=== PATIENT | female | born 1955 | race Caucasian/White ===

== ENCOUNTER 2017-08-23 06:27 | Emergency (ER) | payer OTHER ==
[~2017-08-23] VITALS: Ht 160 cm; Wt 59.0 kg
[~2017-08-23 06:27] MED LIST: AMBIEN10 MG PO; BENTYL10 MG PO; CARAFATE1 GM/10 ML PO; CLARITIN D1 TAB.SR .; CLONAZEPAM1 MG PO; CYMBALTA20 MG PO; FLAGYL250 MG PO; MELOXICAM7.5 MG PO; NORCO 10-325 T1 EACH PO; PANTOPRAZOLE SO40 MG PO; TRINTELLIX PO; TYLENOL WITH C1 EACH PO; ZOFRAN ODT4 MG PO; ZOLOFT100 MG PO
[2017-08-23] MEDS ORDERED: DEXTROSE 50% SYRINGE 50 ML IV ONE (06:40)
[2017-08-23] MEDS ORDERED: DIATRIZOATE MEGL/DIATRIZOA SOD 30 ML BTL PO ONE (07:25)
[2017-08-23] MEDS ORDERED: KETOROLAC TROMETHAMINE 30 MG/ML VIAL IV STA (07:26)
[2017-08-23 08:08] LABS: BASOPHILS # (AUTO) 0.1 (0.0-0.1); EOSINOPHILS # (AUTO) 0.4 (0.0-0.4); EOSINOPHILS % 5.8 % (0.0-6.0); HEMATOCRIT 41.3 % (34.2-44.1); HEMOGLOBIN 13.4 g/dL (12.0-16.0); LYMPHOCYTES % 28.4 % (18.0-39.1); MEAN CORPUSCULAR HEMOGLOBIN 29.6 pg (28-32); MEAN CORPUSCULAR HGB CONC 32.4 g/dL (31-35); MEAN CORPUSCULAR VOLUME 91.4 fL (81-99); MONOCYTES # (AUTO) 0.5 (0.2-0.8); MONOCYTES % 7.3 % (4.4-11.3); NEUTROPHILS # (AUTO) 3.9 (2.1-6.9); NEUTROPHILS % 57.1 % (38.7-80.0); PLATELET COUNT 379 x10e3/uL (140-360); RED BLOOD COUNT 4.52 x10e6/uL (3.6-5.1); RED CELL DISTRIBUTION WIDTH 12.9 % (11.7-14.4)
[2017-08-23 08:32] LABS: ALANINE AMINOTRANSFERASE 21 IU/L (0-55); ALKALINE PHOSPHATASE 94 IU/L (40-150); ANION GAP 15.3 mmol/L (8-16); BLOOD UREA NITROGEN 9 mg/dL (7-26); BUN/CREATININE RATIO 11 (6-25); CALCIUM 9.6 mg/dL (8.4-10.2); CARBON DIOXIDE 29 mmol/L (22-29); CHLORIDE 100 mmol/L (98-107); CREATINE KINASE 87 IU/L (29-168); CREATININE, SERUM 0.83 mg/dL (0.57-1.11); EST GLOMERULAR FILTRATION RATE > 60 ML/MIN (60-); GLUCOSE 98 mg/dL (74-118); LIPASE 19 U/L (8-78); POTASSIUM 3.3 mmol/L (3.5-5.1); SODIUM 141 mmol/L (136-145)
[2017-08-23] MEDS ORDERED: ONDANSETRON HCL INJ 2 MG/ML VIAL IV STA (08:37)
[2017-08-23] MEDS ORDERED: HYDROMORPHONE 1MG/1ML INJ IV STA (08:37)
[2017-08-23 09:25] LABS: BILIRUBIN,URINE NEGATIVE (NEGATIVE); KETONES,URINE NEGATIVE (NEGATIVE); LEUKOCYTE ESTERASE ,URINE NEGATIVE (NEGATIVE); NITRITE,URINE NEGATIVE (NEGATIVE); PROTEIN,URINE DIPSTICK NEGATIVE (NEGATIVE); URINE UROBILINOGEN 0.2 mg/dL (0.2 - 1)
--- NOTE | 2017-08-23 09:45 | Diagnostic Imaging Report ---
PROCEDURE: CT ABDOMEN AND PELVIS WITH CONTRAST TECHNIQUE: The abdomen and pelvis were scanned utilizing a multidetector helical scanner from the diaphragm to the lesser trochanter after the IV administration of 100 cc of Isovue 370 and the oral administration of Gastroview. Coronal and sagittal multiplanar reformations were obtained. COMPARISON: CT abdomen and pelvis 02/01/2017. INDICATIONS: ABDOMEN PAIN FINDINGS: LOWER THORAX: Normal. HEPATOBILIARY: No focal hepatic lesions. No biliary ductal dilatation. Stable hypodensities in the right lobe of the liver, likely represent simple cysts. SPLEEN: No splenomegaly. PANCREAS: No focal masses or ductal dilatation. ADRENALS: No adrenal nodules. KIDNEYS/URETERS: No hydronephrosis, stones, or solid mass lesions. PELVIC ORGANS/BLADDER: Hysterectomy. Normal ovaries. Normal urinary bladder. PERITONEUM / RETROPERITONEUM: No free air or fluid. LYMPH NODES: No lymphadenopathy. VESSELS: Unremarkable. GI TRACT: No distention or wall thickening. Multiple diverticuli are present in the descending and sigmoid colon, without adjacent soft tissue inflammatory changes. Normal appendix. Moderate amount of retained feces in the intraluminal evaluation of the colon. BONES AND SOFT TISSUES: Unremarkable. IMPRESSION: No acute abnormality of the abdomen and pelvis. Diverticulosis without evidence of diverticulitis. Dictated by: Jose Benjamin M.D. on 08/23/2017 at 9:45 Electronically approved by: Jose Benjamin M.D. on 08/23/2017 at 9:45
[2017-08-23 09:49] LABS: CLARITY,URINE CLEAR (CLEAR); COLOR,URINE YELLOW (YELLOW)
[2017-08-23 09:56] LABS: EPITHELIAL CELLS,URINE RARE /LPF
[2017-08-23] MEDS ORDERED: SODIUM CHLORIDE 0.9% 50ML 50 ML ONE (14:49)
[2017-08-23] MEDS ORDERED: IOPAMIDOL 370 MG/ML 200 ML INFUS..BTL INJ ONE (14:49)
== END 2017-08-23 10:20 | disposition home or self-care (01) ==
LOC: ER 06:27
DX: M54.5 Low back pain (principal)
CPT/HCPCS: 36415; 74177; 80053; 81001; 82550; 82553; 83690; 84484; 85025; 87086; 93005; 99284; J1170; J1885; J2405; J7799; Q9967

== ENCOUNTER 2017-10-13 10:13 | Emergency (ER) | payer OTHER ==
[~2017-10-13] VITALS: Ht 160 cm; Wt 73.9 kg
--- OUTSIDE RECORDS SUMMARY | 2017-10-13 10:16 | XMS REPORT ---
Author Author [facility] Address Unknown Phone Unavailable Care Team Providers Care Executive Director Of Marketing Name Role Phone GABRIELE MCNAIR Unavailable Unavailable Problems This patient has no known problems. Allergies, Adverse Reactions, Alerts This patient has no known allergies or adverse reactions. Medications This patient has no known medications. Results Test Description Test Time Test Comments Text Results Atomic Results Result Comments CT ABDOMEN/PELVIS W [place] [address] Patient Name: BRUCE GASCA MR #: [id number] : 1955 Age/Sex: 62/F Req #: [id number] [facility] Physician: Ordered by: GABRIELE MCNAIR MD Report #: [id number] Location: ER Room/Bed: Procedure: [id number] CT/CT ABDOMEN/PELVIS W Exam Date: 08/23/17 Exam Time : 0850 REPORT STATUS: Signed PROCEDURE: CT ABDOMEN AND PELVIS WITH CONTRAST TECHNIQUE: The abdomen and pelvis were scanned utilizing a multidetector helical scanner from the diaphragm to the lesser trochanter after the IV administration of 100 cc of Isovue 370 and the oral administration of Gastroview. Coronal and sagittal multiplanar reformations were obtained. COMPARISON: CT abdomen and pelvis 02/01/2017. INDICATIONS: ABDOMEN PAIN FINDINGS: LOWER THORAX: Normal. HEPATOBILIARY: No focal hepatic lesions. No biliary ductal dilatation. Stable hypodensities in the right lobe of the liver, likely represent simple cysts. SPLEEN: No splenomegaly. PANCREAS: No focal masses or ductal dilatation. ADRENALS: No adrenal nodules. KIDNEYS/URETERS: No hydronephrosis, stones, or solid mass lesions. PELVIC ORGANS/BLADDER: Hysterectomy. Normal ovaries. Normal urinary bladder. PERITONEUM / RETROPERITONEUM: No free air or fluid. LYMPH NODES: No lymphadenopathy. VESSELS: Unremarkable. GI TRACT: No distention or wall thickening. Multiple diverticuli are present in the descending and sigmoid colon, without adjacent soft tissue inflammatory changes. Normal appendix. Moderate amount of retained feces in the intraluminal evaluation of the colon. BONES AND SOFT TISSUES: Unremarkable. IMPRESSION: No acute abnormality of the abdomen and pelvis. Diverticulosis without evidence of diverticulitis. Dictated by: Vicenta Benjamin M.D. on 08/23/2017 at 9:45 Electronically approved by: Vicenta Benjamin M.D. on 08/23/2017 at 9:45 Dictated By: VICENTA BENJAMIN MD 0945 Transcribed By: HAMZAH on 08/23/17 0945 COPY TO: GABRIELE MCNAIR MD
--- OUTSIDE RECORDS SUMMARY | 2017-10-13 10:16 | XMS REPORT | Continuity of Care Document ---
Author Author [facility] Organization [facility] Address [address] [place] [address] Phone Unavailable Care Team Providers Care Community Marketing Coordinator Name Role Phone DIOR ELLINGTON MD PCP Insurance Providers Guarantor Bruce Gasca Address [address] [place] [address] Email [email or web address] Payer Aetna Pos Policy Number [id number] Subscriber's Name Bruce Gasca Relationship 18 Self / Same As Patient Group Number [id number] Group Name [employer] Advance Directives Directive Response Recorded Date/Time Does the patient have an advance directive? Yes 12/23/14 12:36pm If yes, is advance directive on file with [facility]? No 11/14/14 5:49pm If not on file with [facility] will patient provide a copy? Yes 04/18/15 9:15am Do you have a Directive to Physician? No 08/23/17 6:47am Do you have a Medical Power of Meal Packer? No 08/23/17 6:47am Do you have an out of hospital Do Not Resuscitate Order? No 08/23/17 6:47am Do you have any special needs we should be aware of? No 08/23/17 6:47am Do you have a support person here with you today? Yes 08/23/17 6:47am Did patient receive Notice of Privacy Practices? Yes 08/23/17 6:47am Did patient receive patient rights and responsibilities? Yes 08/23/17 6:47am Problems Medical Problem Onset Date Status Contusion of left knee Unknown Acute Diverticulosis 11/14/2014 Acute Irritable bowel 11/14/2014 Acute Urinary tract infection Unknown Acute Vertigo Unknown Acute Medications Current Home Medications Medication Dose Units Route Directions Days Qty Instructions Start Date Clonazepam 1 Mg Tablet 1 Mg Oral Twice A Day as needed for Anxiety Dicyclomine Hcl (Bentyl) 10 Mg Capsule 10 Mg Oral Twice A Day Duloxetine Hcl (Cymbalta) 20 Mg Capcr 20 Mg Oral Daily 30 Cap Hydrocodone Bit/Acetaminophen ([place] 10-325 Tablet) 1 Each Tablet 1 Tab Oral Daily as needed for Pain Ondansetron (Zofran Odt) 4 Mg Tab.rapdis 4 Mg Oral Three Times A Day Pantoprazole Sodium (Protonix) 40 Mg Tablet.dr 40 Mg Oral Three Times A Day Sucralfate (Carafate) 1 Gm/10 Ml Oral.susp 1 Gm Oral Three Times A Day Trintellix Oral Bedtime Past Home Medications Medication Directions Ordered Status Acetaminophen With Codeine (Tylenol With Codeine #3 Tablet) 1 Each Tablet, 300 Mg Oral Discontinued Loratadine/Pseudoephedrine (Claritin D 24 Hr) 1 Tab.sr .24 H Tabsr, Discontinued Meloxicam 7.5 Mg Tablet, 7.5 Mg Oral Daily Discontinued Metronidazole (Flagyl) 250 Mg Tablet, 500 Mg Oral Three Times A Day Discontinued Sertraline Hcl (Zoloft) 100 Mg Tablet, 100 Mg Oral Daily Discontinued Zolpidem Tartrate (Ambien) 10 Mg Tablet, 1 Each Oral Bedtime Discontinued Social History Social History Problem Response Recorded Date/Time Onset Date Status Hx Psychiatric Problems No 11/14/2014 5:49pm Not Applicable Not Applicable Hx Eating Disorder No 11/14/2014 5:49pm Not Applicable Not Applicable Hx Substance Use Disorder No 11/14/2014 5:49pm Not Applicable Not Applicable Hx Depression No 11/14/2014 5:49pm Not Applicable Not Applicable Hx Alcohol Use No 11/14/2014 5:49pm Not Applicable Not Applicable Hx Substance Use Treatment No 11/14/2014 5:49pm Not Applicable Not Applicable Hx Physical Abuse No 11/14/2014 5:49pm Not Applicable Not Applicable Smoking Status Start Date Stop Date Never Smoker Hospital Discharge Instructions No hospital discharge instruction information available. Plan of Care Discharge Date 08/23/17 10:20am Disposition HOME, SELF-CARE Condition at Discharge Stable Instructions/Education Provided Abdominal Pain - Adult Forms Provided Work/School Excuse Prescriptions See Medication Section Referrals DIOR ELLINGTON MD Address: [address] [place] [id number] Additional Instructions/Education follow up with pcp take meds as directed Functional Status No functional status information available. Allergies, Adverse Reactions, Alerts Allergen Type Severity Reaction Status Last Updated Sulfa (Sulfonamide Antibiotics) Allergy Mild RASH Active 02/01/17 Immunizations No immunization information available. Vital Signs Acute Vital Signs Vital Response Date/Time Temperature (Fahrenheit) 97.9 degrees F (97.6 - 99.5) 02/01/2017 9:39pm Pulse Pulse Rate (adult) 70 bpm (60 - 90) 02/01/2017 9:39pm Respiratory Rate 16 bpm (12 - 24) 02/01/2017 9:39pm Blood Pressure 135/75 mm Hg 02/01/2017 9:39pm Height 5 ft 3 in 08/23/2017 6:51am Weight 130 lb 08/23/2017 6:51am Body Mass Index 23.0 kg/m^2 08/23/2017 6:51am Results Laboratory Results Test Name Result Units Flags Reference Collection Date/Time Result Date/ Time Comments White Blood Count 6.87 x10e3/uL 4.8-10.8 08/23/2017 7:50am 08/23/2017 8 :33am Red Blood Count 4.52 x10e6/uL 3.6-5.1 08/23/2017 7:50am 08/23/2017 8: 33am Hemoglobin 13.4 g/dL 12.0-16.0 08/23/2017 7:50am 08/23/2017 8:33am Hematocrit 41.3 % 34.2-44.1 08/23/2017 7:50am 08/23/2017 8:33am Mean Corpuscular Volume 91.4 fL 81-99 08/23/2017 7:50am 08/23/2017 8: 33am Mean Corpuscular Hemoglobin 29.6 pg 28-32 08/23/2017 7:50am 08/23/2017 8:33am Mean Corpuscular Hemoglobin Concent 32.4 g/dL 31-35 08/23/2017 7:50am 08/23/2017 8:33am Red Cell Distribution Width 12.9 % 11.7-14.4 08/23/2017 7:50am 2017 8:33am Platelet Count 379 x10e3/uL H 140-360 08/23/2017 7:50am 08/23/2017 8: 33am Neutrophils (%) (Auto) 57.1 % 38.7-80.0 08/23/2017 7:50am 08/23/2017 8: 33am Lymphocytes (%) (Auto) 28.4 % 18.0-39.1 08/23/2017 7:50am 08/23/2017 8: 33am Monocytes (%) (Auto) 7.3 % 4.4-11.3 08/23/2017 7:50am 08/23/2017 8: 33am Eosinophils (%) (Auto) 5.8 % 0.0-6.0 08/23/2017 7:50am 08/23/2017 8: 33am Basophils (%) (Auto) 1.0 % 0.0-1.0 08/23/2017 7:50am 08/23/2017 8:33am IM GRANULOCYTES % 0.4 % 0.0-1.0 08/23/2017 7:50am 08/23/2017 8:33am Neutrophils # (Auto) 3.9 2.1-6.9 08/23/2017 7:50am 08/23/2017 8:33am Lymphocytes # (Auto) 2.0 1.0-3.2 08/23/2017 7:50am 08/23/2017 8:33am Monocytes # (Auto) 0.5 0.2-0.8 08/23/2017 7:50am 08/23/2017 8:33am Eosinophils # (Auto) 0.4 0.0-0.4 08/23/2017 7:50am 08/23/2017 8:33am Basophils # (Auto) 0.1 0.0-0.1 08/23/2017 7:50am 08/23/2017 8:33am Absolute Immature Granulocyte (auto 0.03 x10e3/uL 0-0.1 08/23/2017 7: 50am 08/23/2017 8:33am Urine Color YELLOW YELLOW 08/23/2017 9:00am 08/23/2017 9:49am Urine Clarity CLEAR CLEAR 08/23/2017 9:00am 08/23/2017 9:49am Urine Specific [place] 1.010 1.010-1.025 08/23/2017 9:00am 2017 9:49am Urine pH 7 5 - 7 08/23/2017 9:00am 08/23/2017 9:49am Urine Leukocyte Esterase NEGATIVE NEGATIVE 08/23/2017 9:00am 2017 9:49am Urine Nitrite NEGATIVE NEGATIVE 08/23/2017 9:00am 08/23/2017 9:49am Urine Protein NEGATIVE NEGATIVE 08/23/2017 9:00am 08/23/2017 9:49am Urine Glucose (UA) NEGATIVE NEGATIVE 08/23/2017 9:00am 08/23/2017 9: 49am Urine Ketones NEGATIVE NEGATIVE 08/23/2017 9:00am 08/23/2017 9:49am Urine Urobilinogen 0.2 mg/dL 0.2 - 1 08/23/2017 9:00am 08/23/2017 9: 49am Urine Bilirubin NEGATIVE NEGATIVE 08/23/2017 9:00am 08/23/2017 9: 49am Urine Blood 1+ H NEGATIVE 08/23/2017 9:00am 08/23/2017 9:49am Urine WBC NONE /HPF 0-5 08/23/2017 9:00am 08/23/2017 9:56am Urine RBC 6-10 /HPF H 0-5 08/23/2017 9:00am 08/23/2017 9:56am Urine Bacteria NONE /HPF NONE 08/23/2017 9:00am 08/23/2017 9:56am Urine Epithelial Cells RARE /LPF NONE 08/23/2017 9:00am 08/23/2017 9: 56am Sodium Level 141 mmol/L 136-145 08/23/2017 7:50am 08/23/2017 8:35am Potassium Level 3.3 mmol/L L 3.5-5.1 08/23/2017 7:50am 08/23/2017 8: 35am Chloride Level 100 mmol/L 98-107 08/23/2017 7:50am 08/23/2017 8:35am Carbon Dioxide Level 29 mmol/L 22-29 08/23/2017 7:50am 08/23/2017 8: 35am Anion Gap 15.3 mmol/L 8-16 08/23/2017 7:50am 08/23/2017 8:35am Blood Urea Nitrogen 9 mg/dL 7-08/23/2017 7:50am 08/23/2017 8:35am Creatinine 0.83 mg/dL 0.57-1.11 08/23/2017 7:50am 08/23/2017 8:35am BUN/Creatinine Ratio 11 6-08/23/2017 7:50am 08/23/2017 8:35am Estimat Glomerular Filtration Rate > 60 ML/MIN 60- 08/23/2017 7:50am 8:35am Ranges were taken from the National Kidney Disease Education Program and the National Kidney Foundation literature. Reference ranges: 60 or greater: Normal 16-59 (for 3 consecutive months): Chronic kidney disease 15 or less: Kidney failure Glucose Level 98 mg/dL 74-118 08/23/2017 7:50am 08/23/2017 8:35am Calcium Level 9.6 mg/dL 8.4-10.2 08/23/2017 7:50am 08/23/2017 8:35am Total Bilirubin < 0.3 mg/dL 0.2-1.2 08/23/2017 7:50am 08/23/2017 8: 35am Aspartate Amino Transf (AST/SGOT) 21 IU/L 5-34 08/23/2017 7:50am 2017 8:35am Alanine Aminotransferase (ALT/SGPT) 21 IU/L 0-55 08/23/2017 7:50am 8:35am Total Protein 8.0 g/dL 6.5-8.1 08/23/2017 7:50am 08/23/2017 8:35am Albumin 4.0 g/dL 3.5-5.0 08/23/2017 7:50am 08/23/2017 8:35am Globulin 4.0 g/dL H 2.3-3.5 08/23/2017 7:50am 08/23/2017 8:35am Albumin/Globulin Ratio 1.0 0.8-2.0 08/23/2017 7:50am 08/23/2017 8: 35am Alkaline Phosphatase 94 IU/L 40-150 08/23/2017 7:50am 08/23/2017 8: 35am Creatine Kinase 87 IU/L 29-168 08/23/2017 7:50am 08/23/2017 8:35am Creatine Kinase MB 0.80 ng/mL 0-5.0 08/23/2017 7:50am 08/23/2017 8: 40am Troponin I < 0.00 ng/mL L 0.0-0.78 08/23/2017 7:50am 08/23/2017 8:40am Lipase 19 U/L 8-78 08/23/2017 7:50am 08/23/2017 8:35am Microbiology Results Procedure Source Organism/Result Collection Date/Time Result Date/Time Result Status Blood Culture Blood NO GROWTH AFTER 5 DAYS, FINAL REPORT 02/01/2017 7:10pm 02/06/2017 7:19pm Final Procedures Procedure Status Date Provider(s) Computed tomography of abdomen and pelvis with contrast Active 02/01/17 SHINE GONZALEZ MD US abdomen limited Active 02/16/17 LUCI SCHROEDER MD Computed tomography of abdomen and pelvis with contrast Active 08/23/17 GABRIELE MCNAIR MD Encounters Encounter Location Arrival/Admit Date Discharge/Depart Date Attending Provider Departed Emergency Room [facility] 08/23/17 6:27am 10:20am GABRIELE MCNAIR MD Registered Clinic [facility] 02/16/17 8:30am LUCI SCHROEDER MD Departed Emergency Room [facility] 02/01/17 4:23pm 9:50pm GABRIELE POE MD Registered Surgical Day Care [facility] 01/15/17 11:17am LUCI SCHROEDER MD
[2017-10-13] MEDS ORDERED: ONDANSETRON HCL INJ 2 MG/ML VIAL IV STA (10:37)
[2017-10-13] MEDS ORDERED: SODIUM CHLORIDE 0.9% 1000ML 1,000 ML IV STA (10:37)
[2017-10-13 11:18] LABS: BASOPHILS # (AUTO) 0.1 (0.0-0.1); BASOPHILS % 0.5 % (0.0-1.0); EOSINOPHILS # (AUTO) 0.2 (0.0-0.4); EOSINOPHILS % 2.1 % (0.0-6.0); HEMOGLOBIN 12.8 g/dL (12.0-16.0); LYMPHOCYTES # (AUTO) 2.1 (1.0-3.2); LYMPHOCYTES % 23.1 % (18.0-39.1); MEAN CORPUSCULAR HGB CONC 33.7 g/dL (31-35); MEAN CORPUSCULAR VOLUME 86.2 fL (81-99); MONOCYTES # (AUTO) 0.8 (0.2-0.8); MONOCYTES % 8.6 % (4.4-11.3); NEUTROPHILS % 65.2 % (38.7-80.0); RED BLOOD COUNT 4.41 x10e6/uL (3.6-5.1); RED CELL DISTRIBUTION WIDTH 13.4 % (11.7-14.4)
[2017-10-13 11:23] LABS: CLARITY,URINE SL CLOUDY (CLEAR); COLOR,URINE ORANGE (YELLOW)
[2017-10-13 11:24] LABS: BILIRUBIN,URINE NEGATIVE (NEGATIVE); KETONES,URINE NEGATIVE (NEGATIVE); LEUKOCYTE ESTERASE ,URINE NEGATIVE (NEGATIVE); NITRITE,URINE NEGATIVE (NEGATIVE); PROTEIN,URINE DIPSTICK NEGATIVE (NEGATIVE); URINE UROBILINOGEN 0.2 mg/dL (0.2 - 1)
[2017-10-13 11:40] LABS: ALBUMIN 3.8 g/dL (3.5-5.0); ANION GAP 21.1 mmol/L (8-16); CALCIUM 9.7 mg/dL (8.4-10.2); CREATININE, SERUM 0.95 mg/dL (0.57-1.11); POTASSIUM 3.1 mmol/L (3.5-5.1)
[2017-10-13 11:40] LABS: WBC,URINE (MAN) 0-5 /HPF (0-5)
[2017-10-13 11:41] LABS: EPITHELIAL CELLS,URINE RARE /LPF
[2017-10-13 11:54] LABS: PLATELET COUNT 337 x10e3/uL (140-360)
--- NOTE | 2017-10-13 11:59 | Diagnostic Imaging Report ---
PROCEDURE:ABDOMEN COMP INCL UPR OR DECUB TECHNIQUE: INDICATION: COMPARISON:CT abdomen and pelvis 08/23/2017. FINDINGS: Moderate amount of retained feces is present in the colon and rectum. No air-fluid levels or pneumoperitoneum. No abnormal calcifications. Visualized osseous structures are unremarkable. CONCLUSION: No acute radiographic abnormality. Dictated by: Jose Benjamin M.D. on 10/13/2017 at 12:00 Electronically approved by: Jose Benjamin M.D. on 10/13/2017 at 12:00
[2017-10-13 13:13] VITALS: BP 103/53
== END 2017-10-13 13:10 | disposition home or self-care (01) ==
LOC: ER 10:13
DX: R10.30 Lower abdominal pain, unspecified (principal); R11.0 Nausea
CPT/HCPCS: 36415; 80053; 81001; 83690; 85025; 93005; 99284; J2405; J7030

== ENCOUNTER 2017-10-21 09:14 | Emergency (ER) | payer OTHER ==
[~2017-10-21] VITALS: Ht 160 cm; Wt 73.9 kg
--- OUTSIDE RECORDS SUMMARY | 2017-10-21 09:18 | XMS REPORT | Continuity of Care Document ---
Author Author [facility] Organization [facility] Address [address] [place] [address] Phone Unavailable Care Team Providers Care Electronics Utility Worker Name Role Phone DIOR ELLINGTON MD PCP Insurance Providers Guarantor Bruce Gasca Address [address] [place] [address] Payer Aet[employer] Pos Policy Number [id number] Subscriber's Name Bruce Gasca Relationship 18 Self / Same As Patient Group Number [id number] Group Name [employer] Effective Date 14 Advance Directives Directive Response Recorded Date/Time Does the patient have an advance directive? Yes 12/23/14 12:36pm If yes, is advance directive on file with [facility]? No 11/14/14 5:49pm If not on file with [facility] will patient provide a copy? Yes 04/18/15 9:15am Do you have a Directive to Physician? Yes 10/13/17 11:14am Do you have a Medical Power of Supervisor Harvesting? Yes 10/13/17 11:14am Do you have an out of hospital Do Not Resuscitate Order? No 10/13/17 11:14am Do you have any special needs we should be aware of? No 10/13/17 11:14am Do you have a support person here with you today? Yes 10/13/17 11:14am Did patient receive Notice of Privacy Practices? Yes 10/13/17 11:14am Did patient receive patient rights and responsibilities? Yes 10/13/17 11:14am Problems Medical Problem Onset Date Status Contusion [...] Mg Oral Daily 30 Cap Hydrocodone Bit/Acetaminophen ([place] 10-325 Tablet) 1 Each Tablet 1 Tab [...] information available. Plan of Care Discharge Date 10/13/17 1:10pm Disposition HOME, SELF-CARE Condition at Discharge Stable Instructions/Education Provided Abdominal Pain - Adult Forms Provided Work/School Excuse Prescriptions See Medication Section Referrals DIOR ELLINGTON MD Address: [address] [place] [address] Additional Instructions/Education 1. follow up with your doctor / GI doctor in 1-2 dyas without fail 2. return to ed as needed 3. over the counter stool softener Functional Status No functional status information available. Allergies, Adverse Reactions, Alerts Allergen Type Severity Reaction Status Last Updated Sulfa (Sulfonamide Antibiotics) Allergy Mild RASH Active 02/01/17 Immunizations No immunization information available. Vital Signs Acute Vital Signs Vital Response Date/Time Temperature (Fahrenheit) 97.9 degrees F (97.6 - 99.5) 02/01/2017 9:39pm Pulse Pulse Rate (adult) 95 bpm (60 - 90) 10/13/2017 1:13pm Respiratory Rate 20 bpm (12 - 24) 10/13/2017 1:13pm Blood Pressure 103/53 mm Hg 10/13/2017 1:13pm Height 5 ft 3 in 10/13/2017 10:20am Weight 163 lb 10/13/2017 10:20am Body Mass Index 28.9 kg/m^2 10/13/2017 10:20am Results Laboratory Results Test Name Result Units Flags Reference Collection Date/Time Result Date/ Time Comments Creatine Kinase 87 IU/L 29-168 08/23/2017 7:50am 08/23/2017 8:35am Creatine Kinase MB 0.80 ng/mL 0-5.0 08/23/2017 7:50am 08/23/2017 8: 40am Troponin I < 0.00 ng/mL L 0.0-0.78 08/23/2017 7:50am 08/23/2017 8:40am White Blood Count 9.26 x10e3/uL 4.8-10.8 10/13/2017 10:45am 10/13/2017 11:19am Red Blood Count 4.41 x10e6/uL 3.6-5.1 10/13/2017 10:45am 10/13/2017 11: 19am Hemoglobin 12.8 g/dL 12.0-16.0 10/13/2017 10:45am 10/13/2017 11:19am Hematocrit 38.0 % 34.2-44.1 10/13/2017 10:45am 10/13/2017 11:19am Mean Corpuscular Volume 86.2 fL 81-99 10/13/2017 10:45am 10/13/2017 11: 19am Mean Corpuscular Hemoglobin 29.0 pg 28-32 10/13/2017 10:45am 2017 11:19am Mean Corpuscular Hemoglobin Concent 33.7 g/dL 31-35 10/13/2017 10:45am 10/13/2017 11:19am Red Cell Distribution Width 13.4 % 11.7-14.4 10/13/2017 10:45am 2017 11:19am Platelet Count 337 x10e3/uL 140-360 10/13/2017 10:45am 10/13/2017 11: 54am Neutrophils (%) (Auto) 65.2 % 38.7-80.0 10/13/2017 10:45am 10/13/2017 11:19am Lymphocytes (%) (Auto) 23.1 % 18.0-39.1 10/13/2017 10:45am 10/13/2017 11:19am Monocytes (%) (Auto) 8.6 % 4.4-11.3 10/13/2017 10:45am 10/13/2017 11: 19am Eosinophils (%) (Auto) 2.1 % 0.0-6.0 10/13/2017 10:45am 10/13/2017 11: 19am Basophils (%) (Auto) 0.5 % 0.0-1.0 10/13/2017 10:45am 10/13/2017 11: 19am IM GRANULOCYTES % 0.5 % 0.0-1.0 10/13/2017 10:45am 10/13/2017 11:19am Neutrophils # (Auto) 6.0 2.1-6.9 10/13/2017 10:45am 10/13/2017 11: 19am Lymphocytes # (Auto) 2.1 1.0-3.2 10/13/2017 10:4510/13/2017 11: 19am Monocytes # (Auto) 0.8 0.2-0.8 10/13/2017 10:4510/13/2017 11:19am Eosinophils # (Auto) 0.2 0.0-0.4 10/13/2017 10:4510/13/2017 11: 19am Basophils # (Auto) 0.1 0.0-0.1 10/13/2017 10:4510/13/2017 11:19am Absolute Immature Granulocyte (auto 0.05 x10e3/uL 0-0.1 10/13/2017 10: 4510/13/2017 11:19am Urine Color ORANGE H YELLOW 10/13/2017 10:10/13/2017 11:24am Urine Clarity SL CLOUDY CLEAR 10/13/2017 10:10/13/2017 11:24am Urine Specific [place] 1.020 1.010-1.025 10/13/2017 10:2017 11:24am Urine pH 6 5 - 7 10/13/2017 10:10/13/2017 11:24am Urine Leukocyte Esterase NEGATIVE NEGATIVE 10/13/2017 10:2017 11:24am Urine Nitrite NEGATIVE NEGATIVE 10/13/2017 10:10/13/2017 11: 24am Urine Protein NEGATIVE NEGATIVE 10/13/2017 10:10/13/2017 11: 24am Urine Glucose (UA) NEGATIVE NEGATIVE 10/13/2017 10:10/13/2017 11 :24am Urine Ketones NEGATIVE NEGATIVE 10/13/2017 10:10/13/2017 11: 24am Urine Urobilinogen 0.2 mg/dL 0.2 - 1 10/13/2017 10:2010/13/2017 11: 24am Urine Bilirubin NEGATIVE NEGATIVE 10/13/2017 10:10/13/2017 11: 24am Urine Blood 1+ H NEGATIVE 10/13/2017 10:10/13/2017 11:24am Urine WBC 0-5 /HPF 0-5 10/13/2017 10:2010/13/2017 11:42am Urine RBC 11-20 /HPF H 0-5 10/13/2017 10:10/13/2017 11:42am Urine Bacteria NONE /HPF NONE 10/13/2017 10:2010/13/2017 11:42am Urine Epithelial Cells RARE /LPF NONE 10/13/2017 10:2010/13/2017 11: 42am Urine Hyaline Casts 2-5 H 0-1 10/13/2017 10:2010/13/2017 11:42am Urine Fine Granular Casts 1-5 H 0 10/13/2017 10:2010/13/2017 11: 42am Sodium Level 134 mmol/L L 136-145 10/13/2017 10:45am 10/13/2017 11:43am Potassium Level 3.1 mmol/L L 3.5-5.1 10/13/2017 10:45am 10/13/2017 11: 43am Chloride Level 93 mmol/L L 98-107 10/13/2017 10:45am 10/13/2017 11:43am Carbon Dioxide Level 23 mmol/L 22-29 10/13/2017 10:45am 10/13/2017 11: 43am Anion Gap 21.1 mmol/L H 8-16 10/13/2017 10:45am 10/13/2017 11:43am Blood Urea Nitrogen 19 mg/dL 7-26 10/13/2017 10:45am 10/13/2017 11: 43am Creatinine 0.95 mg/dL 0.57-1.11 10/13/2017 10:45am 10/13/2017 11:43am BUN/Creatinine Ratio 20 6-25 10/13/2017 10:45am 10/13/2017 11:43am Estimat Glomerular Filtration Rate 60 ML/MIN 60- 10/13/2017 10:45am 06/2018 11:43am Ranges were taken from the National Kidney Disease Education Program and the National Kidney Foundation literature. Reference ranges: 60 or greater: Normal 16-59 (for 3 consecutive months): Chronic kidney disease 15 or less: Kidney failure Glucose Level 97 mg/dL 74-118 10/13/2017 10:45am 10/13/2017 11:43am Calcium Level 9.7 mg/dL 8.4-10.2 10/13/2017 10:45am 10/13/2017 11:43am Total Bilirubin 0.5 mg/dL 0.2-1.2 10/13/2017 10:45am 10/13/2017 11: 43am Aspartate Amino Transf (AST/SGOT) 16 IU/L 5-34 10/13/2017 10:45am 10/13 11:43am Alanine Aminotransferase (ALT/SGPT) 22 IU/L 0-55 10/13/2017 10:45am 06/2018 11:43am Total Protein 7.5 g/dL 6.5-8.1 10/13/2017 10:45am 10/13/2017 11:43am Albumin 3.8 g/dL 3.5-5.0 10/13/2017 10:45am 10/13/2017 11:43am Globulin 3.7 g/dL H 2.3-3.5 10/13/2017 10:45am 10/13/2017 11:43am Albumin/Globulin Ratio 1.0 0.8-2.0 10/13/2017 10:45am 10/13/2017 11: 43am Alkaline Phosphatase 93 IU/L 40-150 10/13/2017 10:45am 10/13/2017 11: 43am Lipase 29 U/L 8-78 10/13/2017 10:45am 10/13/2017 11:43am Microbiology Results Procedure Source Organism/Result Collection Date/Time [...] Discharge/Depart Date Attending Provider Departed Emergency Room [facility] 10/13/17 10:13am 10/13 1:10pm DELORES ZAMAN MD Departed Emergency Room [facility] 08/23/17 6:27am 10:20am GABRIELE MCNAIR MD Registered Clinic [facility] 02/16/17 8:30am LUCI SCHROEDER MD Departed Emergency Room [facility] 02/01/17 4:23pm 9:50pm GABRIELE POE MD Registered Surgical Day Care [facility] 01/15/17 11:17am LUCI SCHROEDER MD
[2017-10-21 09:36] LABS: CLARITY,URINE SL CLOUDY (CLEAR); COLOR,URINE ORANGE (YELLOW)
[2017-10-21 09:37] LABS: BILIRUBIN,URINE NEGATIVE (NEGATIVE); KETONES,URINE NEGATIVE (NEGATIVE); LEUKOCYTE ESTERASE ,URINE 1+ (NEGATIVE); NITRITE,URINE POSITIVE (NEGATIVE); PROTEIN,URINE DIPSTICK TRACE (NEGATIVE); URINE UROBILINOGEN 1 mg/dL (0.2 - 1)
[2017-10-21] MEDS ORDERED: SODIUM CHLORIDE 0.9% 1000ML 1,000 ML IV STA (09:44)
[2017-10-21] MEDS ORDERED: ONDANSETRON HCL INJ 2 MG/ML VIAL IV STA (09:44)
--- NOTE | 2017-10-21 09:47 | Diagnostic Imaging Report ---
PROCEDURE: CT ABDOMEN AND PELVIS WITHOUT CONTRAST TECHNIQUE: The abdomen and pelvis were scanned utilizing a multidetector helical scanner from the diaphragm to the lesser trochanter. No oral or intravenous contrast was administered per referring physician request. Coronal and sagittal multiplanar reformations were obtained. COMPARISON: CT abdomen and pelvis 08/21/2059. INDICATIONS: LEFT FLANK PAIN FINDINGS: ABSENCE OF INTRAVENOUS CONTRAST DECREASES SENSITIVITY FOR DETECTION OF FOCAL LESIONS AND VASCULAR PATHOLOGY. LOWER THORAX: The bandlike atelectasis or fibrotic change in the left lower lobe. HEPATOBILIARY: Simple cyst in hepatic segment 8 and 4B, unchanged. Subcentimeter hypoattenuating lesion in segment 3, too small to further characterize but likely to also represent a small cyst. No additional focal hepatic lesion. No intrahepatic biliary dilatation. Gallbladder unremarkable. SPLEEN: No splenomegaly. PANCREAS: No focal masses or ductal dilatation. ADRENALS: No adrenal nodules. KIDNEYS/URETERS: No hydronephrosis, stones, or solid mass lesions. PELVIC ORGANS/BLADDER: Urinary bladder is collapsed and poorly evaluated. The uterus is not identified and has presumably been removed. No adnexal mass. PERITONEUM / RETROPERITONEUM: No free air or fluid. LYMPH NODES: No pelvic sidewall, retroperitoneal, or mesenteric lymphadenopathy. VESSELS: Limited evaluation without intravenous contrast. The abdominal aorta is non-aneurysmal. GI TRACT: The large bowel shows no distention or wall thickening. Multiple diverticula scattered along the descending and sigmoid colon, without wall thickening or inflammatory change. Normal appendix. Small hiatal hernia. No small bowel dilatation to suggest obstruction. BONES AND SOFT TISSUES: No osseous destructive lesions. Bone island right sacral ala unchanged. Bone island left iliac wing unchanged. Mild degenerative disc changes of the lower thoracic and lumbar spine. Multiple calcified soft tissue injection granulomata in the right gluteal subcutaneous fat. IMPRESSION: No acute intra-abdominal or pelvic CT abnormalities. No urolithiasis. Dictated by: Maximino Mckeon M.D. on 10/21/2017 at 9:48 Electronically approved by: Maximino Mckeon M.D. on 10/21/2017 at 9:48
[2017-10-21 09:52] LABS: BACTERIA,URINE MODERATE /HPF; EPITHELIAL CELLS,URINE FEW /LPF
[2017-10-21 10:28] LABS: BASOPHILS # (AUTO) 0.1 (0.0-0.1); BASOPHILS % 0.6 % (0.0-1.0); EOSINOPHILS # (AUTO) 0.3 (0.0-0.4); EOSINOPHILS % 3.6 % (0.0-6.0); HEMATOCRIT 34.3 % (34.2-44.1); HEMOGLOBIN 11.8 g/dL (12.0-16.0); LYMPHOCYTES # (AUTO) 1.8 (1.0-3.2); LYMPHOCYTES % 20.2 % (18.0-39.1); MEAN CORPUSCULAR HEMOGLOBIN 29.1 pg (28-32); MEAN CORPUSCULAR HGB CONC 34.4 g/dL (31-35); MEAN CORPUSCULAR VOLUME 84.7 fL (81-99); MONOCYTES # (AUTO) 0.7 (0.2-0.8); MONOCYTES % 7.8 % (4.4-11.3); NEUTROPHILS % 66.9 % (38.7-80.0); PLATELET COUNT 352 x10e3/uL (140-360); RED BLOOD COUNT 4.05 x10e6/uL (3.6-5.1); RED CELL DISTRIBUTION WIDTH 13.2 % (11.7-14.4)
[2017-10-21 10:50] LABS: ALANINE AMINOTRANSFERASE 22 IU/L (0-55); ALBUMIN 3.4 g/dL (3.5-5.0); ALBUMIN/GLOBULIN RATIO 0.9 (0.8-2.0); ALKALINE PHOSPHATASE 82 IU/L (40-150); ANION GAP 15.7 mmol/L (8-16); BLOOD UREA NITROGEN 11 mg/dL (7-26); BUN/CREATININE RATIO 14 (6-25); CALCIUM 9.2 mg/dL (8.4-10.2); CARBON DIOXIDE 27 mmol/L (22-29); CHLORIDE 85 mmol/L (98-107); CREATININE, SERUM 0.77 mg/dL (0.57-1.11); EST GLOMERULAR FILTRATION RATE > 60 ML/MIN (60-); GLUCOSE 101 mg/dL (74-118); POTASSIUM 3.7 mmol/L (3.5-5.1); SODIUM 124 mmol/L (136-145)
[2017-10-28] MEDS ORDERED: AMBIEN10 MG PO (12:01)
== END 2017-10-21 11:45 | disposition home or self-care (01) ==
LOC: ER 09:14
DX: R10.31 Right lower quadrant pain (principal); R10.32 Left lower quadrant pain; N30.90 Cystitis, unspecified without hematuria; E87.1 Hypo-osmolality and hyponatremia; M32.9 Systemic lupus erythematosus, unspecified; K21.9 Gastro-esophageal reflux disease without esophagitis; F41.9 Anxiety disorder, unspecified
CPT/HCPCS: 36415; 74176; 80053; 81001; 85025; 87086; 99284; J2405; J7030

== ENCOUNTER → 2017-10-31 | Day surgery (SDC) | payer OTHER ==
[~2017-10-31] MED LIST changes: +FENTANYL CITRATE/PF 100MCG/2 ML INJ ONE; +GLUCAGON FOR INJ 1 MG VIAL ONE; +HYOSCYAMINE SULFATE 0.5 MG/ML AMP ONE; +MIDAZOLAM HCL 2 MG/2 ML VIAL ONE; +PROPOFOL IV EMULSION 10 MG/ML 50 ML VIAL ONE
--- OUTSIDE RECORDS SUMMARY | 2017-10-31 09:56 | XMS REPORT | Continuity of Care Document ---
Author Author [facility] Organization [facility] Address [address] [place] [address] Phone Unavailable Care Team Providers Care Automobile Body Customizer Name Role Phone DIOR ELLINGTON MD PCP Insurance Providers Guarantor Bruce Gasca Address [address] [place] [address] Email PTDECLINED Payer [employer] Pos Policy Number [id number] Subscriber's Name Gasca,Kim Relationship 18 Self / Same As Patient Group Number [id number] Group Name [id number] Effective Date 14 Advance Directives Directive Response Recorded Date/Time Does the patient have an advance directive? Yes 12/23/14 12:36pm If yes, is advance directive on file with [facility]? No 11/14/14 5:49pm If not on file with [facility] will patient provide a copy? Yes 04/18/15 9:15am Do you have a Directive to Physician? Yes 10/21/17 10:57am Do you have a Medical Power of Tufting Machine Fixer? Yes 10/21/17 10:57am Do you have an out of hospital Do Not Resuscitate Order? No 10/21/17 10:57am Do you have any special needs we should be aware of? No 10/21/17 10:57am Do you have a support person here with you today? Yes 10/21/17 11:30am Did patient receive Notice of Privacy Practices? Yes 10/21/17 10:57am Did patient receive patient rights and responsibilities? Yes 10/21/17 10:57am Problems Medical Problem Onset Date Status Contusion [...] Mg Oral Daily 30 Cap Hydrocodone Bit/Acetaminophen ([place] 10-325 Tablet) 1 Each Tablet 1 Tab [...] information available. Plan of Care Discharge Date 10/21/17 11:45am Disposition HOME, SELF-CARE Condition at Discharge Stable Instructions/Education Provided Urinary Tract Infection - Women Forms Provided Work/School Excuse Prescriptions See Medication Section Referrals DIOR ELLINGTON MD Address: [address] [place] [id number] Additional Instructions/Education follow up with pcp take meds as directed stay hydrated Functional Status No functional status information available. [...] 10/13/2017 1:13pm Height 5 ft 3 in 10/21/2017 9:19am Weight 163 lb 10/21/2017 9:19am Body Mass Index 28.9 kg/m^2 10/21/2017 9:19am Results Laboratory Results Test Name Result Units Flags Reference Collection Date/Time Result Date/ Time Comments Creatine Kinase 87 IU/L 29-168 08/23/2017 7:50am 08/23/2017 8:35am Creatine Kinase MB 0.80 ng/mL 0-5.0 08/23/2017 7:50am 08/23/2017 8: 40am Troponin I < 0.00 ng/mL L 0.0-0.78 08/23/2017 7:50am 08/23/2017 8:40am Urine Hyaline Casts 2-5 H 0-1 10/13/2017 10:20am 10/13/2017 11:42am Urine Fine Granular Casts 1-5 H 0 10/13/2017 10:20am 10/13/2017 11: 42am Lipase 29 U/L 8-78 10/13/2017 10:45am 10/13/2017 11:43am White Blood Count 9.01 x10e3/uL 4.8-10.8 10/21/2017 10:10/21/2017 10:32am Red Blood Count 4.05 x10e6/uL 3.6-5.1 10/21/2017 10:10/21/2017 10: 32am Hemoglobin 11.8 g/dL L 12.0-16.0 10/21/2017 10:10/21/2017 10:32am Hematocrit 34.3 % 34.2-44.1 10/21/2017 10:10/21/2017 10:32am Mean Corpuscular Volume 84.7 fL 81-99 10/21/2017 10:10/21/2017 10: 32am Mean Corpuscular Hemoglobin 29.1 pg 28-32 10/21/2017 10:2017 10:32am Mean Corpuscular Hemoglobin Concent 34.4 g/dL 31-35 10/21/2017 10:10/21/2017 10:32am Red Cell Distribution Width 13.2 % 11.7-14.4 10/21/2017 10:2017 10:32am Platelet Count 352 x10e3/uL 140-360 10/21/2017 10:10/21/2017 10: 32am Neutrophils (%) (Auto) 66.9 % 38.7-80.0 10/21/2017 10:10/21/2017 10:32am Lymphocytes (%) (Auto) 20.2 % 18.0-39.1 10/21/2017 10:10/21/2017 10:32am Monocytes (%) (Auto) 7.8 % 4.4-11.3 10/21/2017 10:10/21/2017 10: 32am Eosinophils (%) (Auto) 3.6 % 0.0-6.0 10/21/2017 10:10/21/2017 10: 32am Basophils (%) (Auto) 0.6 % 0.0-1.0 10/21/2017 10:10/21/2017 10: 32am IM GRANULOCYTES % 0.9 % 0.0-1.0 10/21/2017 10:10/21/2017 10:32am Neutrophils # (Auto) 6.0 2.1-6.9 10/21/2017 10:13am 10/21/2017 10: 32am Lymphocytes # (Auto) 1.8 1.0-3.2 10/21/2017 10:1310/21/2017 10: 32am Monocytes # (Auto) 0.7 0.2-0.8 10/21/2017 10:10/21/2017 10:32am Eosinophils # (Auto) 0.3 0.0-0.4 10/21/2017 10:1310/21/2017 10: 32am Basophils # (Auto) 0.1 0.0-0.1 10/21/2017 10:10/21/2017 10:32am Absolute Immature Granulocyte (auto 0.08 x10e3/uL 0-0.1 10/21/2017 10: 10/21/2017 10:32am Urine Color ORANGE H YELLOW 10/21/2017 9:00am 10/21/2017 9:38am Urine Clarity SL CLOUDY CLEAR 10/21/2017 9:0010/21/2017 9:38am Urine Specific [place] 1.015 1.010-1.025 10/21/2017 9:002017 9:38am Urine pH 7 5 - 7 10/21/2017 9:0010/21/2017 9:38am Urine Leukocyte Esterase 1+ H NEGATIVE 10/21/2017 9:00am 10/21/2017 9: 38am Urine Nitrite POSITIVE H NEGATIVE 10/21/2017 9:0010/21/2017 9:38am Urine Protein TRACE H NEGATIVE 10/21/2017 9:00am 10/21/2017 9:38am Urine Glucose (UA) 1+ H NEGATIVE 10/21/2017 9:00am 10/21/2017 9:38am Urine Ketones NEGATIVE NEGATIVE 10/21/2017 9:0010/21/2017 9:38am Urine Urobilinogen 1 mg/dL 0.2 - 1 10/21/2017 9:00am 10/21/2017 9:38am Urine Bilirubin NEGATIVE NEGATIVE 10/21/2017 9:00am 10/21/2017 9: 38am Urine Blood TRACE H NEGATIVE 10/21/2017 9:0010/21/2017 9:38am Urine WBC 11-20 /HPF H 0-5 10/21/2017 9:0010/21/2017 9:52am Urine RBC 6-10 /HPF H 0-5 10/21/2017 9:0010/21/2017 9:52am Urine Bacteria MODERATE /HPF H NONE 10/21/2017 9:0010/21/2017 9:52am Urine Epithelial Cells FEW /LPF NONE 10/21/2017 9:0010/21/2017 9: 52am Sodium Level 124 mmol/L L 136-145 10/21/2017 10:1310/21/2017 10:51am Potassium Level 3.7 mmol/L 3.5-5.1 10/21/2017 10:10/21/2017 10: 51am Chloride Level 85 mmol/L L 98-107 10/21/2017 10:10/21/2017 10:51am Carbon Dioxide Level 27 mmol/L 22-29 10/21/2017 10:10/21/2017 10: 51am Anion Gap 15.7 mmol/L 8-16 10/21/2017 10:1310/21/2017 10:51am Blood Urea Nitrogen 11 mg/dL 7-26 10/21/2017 10:10/21/2017 10: 51am Creatinine 0.77 mg/dL 0.57-1.11 10/21/2017 10:10/21/2017 10:51am BUN/Creatinine Ratio 14 6-25 10/21/2017 10:10/21/2017 10:51am Estimat Glomerular Filtration Rate > 60 ML/MIN 60- 10/21/2017 10:10/21/2017 10:51am Ranges were taken from the National Kidney Disease Education Program and the National Kidney Foundation literature. Reference ranges: 60 or greater: Normal 16-59 (for 3 consecutive months): Chronic kidney disease 15 or less: Kidney failure Glucose Level 101 mg/dL 74-118 10/21/2017 10:1310/21/2017 10:51am Calcium Level 9.2 mg/dL 8.4-10.2 10/21/2017 10:1310/21/2017 10:51am Total Bilirubin 0.5 mg/dL 0.2-1.2 10/21/2017 10:13am 10/21/2017 10: 51am Aspartate Amino Transf (AST/SGOT) 28 IU/L 5-34 10/21/2017 10:13am 10/21 10:51am Alanine Aminotransferase (ALT/SGPT) 22 IU/L 0-55 10/21/2017 10:13am 10:51am Total Protein 7.3 g/dL 6.5-8.1 10/21/2017 10:13am 10/21/2017 10:51am Albumin 3.4 g/dL L 3.5-5.0 10/21/2017 10:13am 10/21/2017 10:51am Globulin 3.9 g/dL H 2.3-3.5 10/21/2017 10:13am 10/21/2017 10:51am Albumin/Globulin Ratio 0.9 0.8-2.0 10/21/2017 10:13am 10/21/2017 10: 51am Alkaline Phosphatase 82 IU/L 40-150 10/21/2017 10:13am 10/21/2017 10: 51am Microbiology Results Procedure Source Organism/Result Collection Date/Time [...] with contrast Active 08/23/[address] of abdomen and pelvis without contrast Active 10/21/17 KATY JACOBS MD Encounters Encounter Location Arrival/Admit Date Discharge/Depart Date Attending Provider Departed Emergency Room [facility] 10/21/17 9:14am 11:45am KATY JACOBS MD Departed Emergency Room [facility] 10/13/17 10:13am 10/13 1:10pm DELORES ZAMAN MD Departed Emergency Room [facility] 08/23/17 6:27am 10:20am GABRIELE MCNAIR MD Registered Clinic [facility] 02/16/17 8:30am LUCI SCHROEDER MD Departed Emergency Room [facility] 02/01/17 4:23pm 9:50pm GABRIELE POE [facility] 01/15/17 11:17am LUCI SCHROEDER MD
--- NOTE | 2017-10-31 14:08 | Operative Report ---
DATE OF PROCEDURE: October 31, 2017 REFERRING PHYSICIAN: Dr. Molina Ellington PROCEDURES PERFORMED 1. Esophagogastroduodenoscopy with biopsies. 2. Colonoscopy with polypectomy. INDICATIONS FOR EGD: Heartburn, indigestion. INDICATIONS FOR COLONOSCOPY: Colorectal cancer screening. Progressive constipation. Personal history of colon polyp. MEDICATION: Patient was done under MAC. Please see anesthesiologist's note. PROCEDURE: With the patient in the left lateral decubitus position, the flexible fiberoptic Olympus gastroscope was introduced into the esophagus under direct visualization without any difficulty. There was some patchy erythema noted in the distal esophagus. The scope was then advanced with ease into the stomach, and mucosa overlying the antrum and the body revealed some patchy erythema and low-grade to moderate edema. Biopsies were obtained and sent to stain for H. pylori. The pylorus was of normal contour and shape. It was intubated with ease, and the scope was advanced all the way to the 2nd portion of the duodenum. The scope was then was withdrawn slowly. Mucosa overlying the proximal 2nd portion and the duodenal bulb appeared to be within normal limits. The scope was then withdrawn back into the stomach and retroflexed, and mucosa overlying the fundus and the cardia appeared to be within normal limits. The scope was then straightened out. The stomach was decompressed. Scope was subsequently withdrawn. Patient tolerated the procedure well. IMPRESSION 1. Distal esophagitis. 2. Gastritis, biopsied. Biopsies sent to stain for H. pylori. PLAN: Follow up histology. Continue Protonix 40 mg 1 p.o. a.c. b.i.d. Will proceed with a HIDA scan with ejection fraction on this patient since his dyspeptic symptoms are not getting better on his adequate PPI therapy. The patient was then turned around. After adequate lubrication of the anal canal, a flexible fiberoptic Olympus colonoscope was inserted into the rectum with ease and advanced all the way to the cecum. Prep overall was suboptimal with retained stools in the colon. The scope was then withdrawn slowly. Mucosa overlying the cecum appeared to be within normal limits. Some diverticulosis was noted in the ascending colon as well as the transverse colon. One polyp was hot biopsied from the descending colon. Diverticular disease was noted also in the distal descending and the sigmoid colon. The rectum appeared to be within normal limits. The scope was then retroflexed into the distal rectum, and small internal hemorrhoids were noted, none of which was actively bleeding. The scope was then straightened out. The rectosigmoid area as well as the distal rectal area were decompressed. Scope was subsequently withdrawn. Patient tolerated the procedure well. IMPRESSION 1. Suboptimal prep. 2. Diverticulosis. 3. Descending colon polyp, hot biopsied. 4. Internal hemorrhoids, none actively bleeding. PLAN: Follow up histology. Initiate high-fiber, low-fat diet. Start Linzess 145 mcg 1 p.o. q.a.m. a.c. Job#: [id number] cc:MOLINA ELLINGTON MD
== END | disposition home or self-care (01) ==
LOC: OR 09:54
PROVIDERS: ATTEND Internal Medicine Gastroenterology
DX: Z12.11 Encounter for screening for malignant neoplasm of colon (principal); R11.0 Nausea; R12 Heartburn; K59.00 Constipation, unspecified; R19.4 Change in bowel habit; K92.1 Melena; Z86.010 Personal history of colon polyps; K20.9 Esophagitis, unspecified; K29.70 Gastritis, unspecified, without bleeding; K57.30 Diverticulosis of large intestine without perforation or abscess without bleeding; K64.8 Other hemorrhoids; K63.5 Polyp of colon; Z88.2 Allergy status to sulfonamides; Z87.440 Personal history of urinary (tract) infections
CPT/HCPCS: 43239; 45384; 93005; J1610; J1980; J2250; 45378

== ENCOUNTER → 2017-11-14 | Outpatient (CLI) | payer OTHER ==
[~2017-11-14] MED LIST changes: -FENTANYL CITRATE/PF 100MCG/2 ML INJ ONE; -GLUCAGON FOR INJ 1 MG VIAL ONE; -HYOSCYAMINE SULFATE 0.5 MG/ML AMP ONE; -MIDAZOLAM HCL 2 MG/2 ML VIAL ONE; -PROPOFOL IV EMULSION 10 MG/ML 50 ML VIAL ONE; +SINCALIDE 3 MCG/VIAL INJ ONE
--- NOTE | 2017-11-14 17:39 | Diagnostic Imaging Report ---
Hepatobiliary Scan with Gallbladder Ejection Fraction Clinical information: 62 F with abdominal pain that is progressively worsening. Report: Following intravenous administration of 6.5 millicuries of Tc-99m mebrofenin, dynamic images of the abdomen in the anterior projection were obtained through 60 minutes. Sincalide (CCK analog) 1.7 micrograms was administered intravenously over 30 minutes with additional imaging for determination of gallbladder ejection fraction. Perfusion to the liver is normal. Extraction of tracer from the blood pool by the liver parenchyma is normal. Tracer is seen promptly within the biliary tract. The gallbladder begins to fill by 8 minutes post-injection of tracer and fills adequately. Tracer is seen in the small bowel during the sincalide infusion. The gallbladder ejection fraction with administration of sincalide is 64% (normal greater than 40%). Impression: 1. Filling of the gallbladder excludes the diagnosis of acute cystic duct obstruction/acute cholecystitis. 2. Normal gallbladder ejection fraction of 64% does not support the clinical diagnosis of chronic cholecystitis/gallbladder dyskinesia. 3. Prior hepatobiliary scan of 02/16/2017 also showed a normal gallbladder ejection fraction in response to sincalide. Signed by: Dr. Mariah Knapp M.D. on 11/14/2017 5:35 PM
== END ==
LOC: NM 09:35
PROVIDERS: ATTEND Internal Medicine Gastroenterology
DX: K20.9 Esophagitis, unspecified (principal); K29.70 Gastritis, unspecified, without bleeding; R12 Heartburn
CPT/HCPCS: 78227; A9537; J2805

== ENCOUNTER 2019-09-09 14:39 | Inpatient (IN) | payer OTHER ==
[~2019-09-09] VITALS: Ht 160 cm; Wt 64.1 kg
[~2019-09-09 14:39] MED LIST changes: -SINCALIDE 3 MCG/VIAL INJ ONE
--- OUTSIDE RECORDS SUMMARY | 2019-09-09 14:45 | XMS REPORT ---
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 Coats T Prakash ENCOUNTERS Date Type Provider Location Encounter Diagnosis - Ambulatory Encounter [facility] Prak[facility] Coats T Prakash Coats T Prakash [facility] OB UNK - Ambulatory Encounter Coats T Prakash Coats T Prakash [facility] OB UNK - Ambulatory Encounter Coats T Prakash Coats T Prakash [facility] UNK - Ambulatory Encounter Coats T Prakash Coats T Prakash [facility] UNK - Ambulatory Encounter Coats T Prakash Coats T Prakash [facility] OB UNK - Ambulatory Encounter Coats T Prakash Coats T Prakash Anahi Leblanc [facility] employee's representative well woman examScreening mammogram for breast cancerYeast infection VITAL SIGNS No Information Available ALLERGIES Allergy Name Onset Date Reaction Criticality Status SULFA rash High Criticality active REASON FOR REFERRAL Start Date - End Date Service - Mammogram - Screening RESULTS Date Observation Value Provider Reference Range Interpretation Location trichomonas vaginalis, urine Negative [facility] Negative urine culture No growth [facility] HISTORY OF IMMUNIZATIONS No Information Available HISTORY OF MEDICATION USE Medication Instructions Dates Provider Comments NYSTATIN 647613 UNIT/GM EXTERNAL POWDER Apply to affected area twice daily as needed Jorge L Prakash FLUCONAZOLE 150 MG ORAL TABLET Take 1 tablet by mouth now and repeat again in 72 hours Jorge L Prakash MACROBID 100 MG ORAL CAPSULE Jorge L Prakash NORCO 5-325 MG ORAL TABLET Jorge L Prakash AMBIEN 10 MG ORAL TABLET Jorge L Prakash CLONAZEPAM 1 MG ORAL TABLET Jorge L Prakash SOCIAL HISTORY Date Observation Value Provider time of call 03/31/2019 12:05 PM Mary Tiwari drug use, illicit Never Jorge L Prakash " alcohol use Never Jorge L Prakash " social history reviewed E&M reviewed today Anahi Clayton " passive cigarette smoke exposure No Anahi Clayton " smoking status never smoker Anahi Clayton FUNCTIONAL STATUS No Information Available MENTAL STATUS Date Observation Value Provider assessment of judgment and insight E&M intact Jorge L Prakash " mental status examination: orientation E&M oriented to time, place, and person Jorge L Prakash " assessment of mood and affect E&M no depression, anxiety, or agitation Jorge L Prakash " Generalized Anxiety Disorder Questionnaire - Question 2 0 Anahi Clayton " Generalized Anxiety Disorder Questionnaire - Question 1 0 Anahi Clayton MEDICAL EQUIPMENT No Information Available FAMILY HISTORY No Information Available INSURANCE PROVIDERS No Information Available ADVANCE DIRECTIVES No Information Available TREATMENT PLAN Date Name Vaginitis/Vaginosis, DNA Probe (Affirm) ([facility]) Urine Culture, Routine - New Patient Well Exam (40 - 64 Yrs) - [id number] HISTORY OF PROCEDURES No Information Available GOALS No Information Available HEALTH CONCERNS No Information Available
[2019-09-09 16:28] LABS: CLARITY,URINE SL CLOUDY (CLEAR); COLOR,URINE ORANGE (YELLOW); LEUKOCYTE ESTERASE ,URINE TRACE (NEGATIVE); NITRITE,URINE NEGATIVE (NEGATIVE); PROTEIN,URINE DIPSTICK 2+ (NEGATIVE)
[2019-09-09 16:29] LABS: BILIRUBIN,URINE MODERATE (NEGATIVE); KETONES,URINE TRACE (NEGATIVE); URINE UROBILINOGEN 0.2 mg/dL (0.2 - 1)
[2019-09-09 16:36] LABS: BASOPHILS % 0.4 % (0.0-1.0); EOSINOPHILS # (AUTO) 0.1 (0.0-0.4); EOSINOPHILS % 0.5 % (0.0-6.0); HEMATOCRIT 39.7 % (34.2-44.1); HEMOGLOBIN 12.6 g/dL (12.0-16.0); LYMPHOCYTES # (AUTO) 1.6 (1.0-3.2); LYMPHOCYTES % 16.8 % (18.0-39.1); MEAN CORPUSCULAR HEMOGLOBIN 29.6 pg (28-32); MEAN CORPUSCULAR HGB CONC 31.7 g/dL (31-35); MEAN CORPUSCULAR VOLUME 93.4 fL (81-99); MONOCYTES # (AUTO) 0.7 (0.2-0.8); NEUTROPHILS # (AUTO) 7.3 (2.1-6.9); PLATELET COUNT 294 x10e3/uL (140-360); RED BLOOD COUNT 4.25 x10e6/uL (3.6-5.1); RED CELL DISTRIBUTION WIDTH 12.9 % (11.7-14.4)
[2019-09-09 16:52] LABS: BACTERIA,URINE MODERATE /HPF; CALCIUM OXALATE CRYSTALS,UR MODERATE (FEW); EPITHELIAL CELLS,URINE MANY /LPF; RBC,URINE 21-50 /HPF (0-5); WBC,URINE (MAN) 21-50 /HPF (0-5)
[2019-09-09 16:56] LABS: ALANINE AMINOTRANSFERASE 8 IU/L (0-55); ALBUMIN 3.5 g/dL (3.5-5.0); ALBUMIN/GLOBULIN RATIO 0.9 (0.8-2.0); ALKALINE PHOSPHATASE 60 IU/L (40-150); ANION GAP 13.4 mmol/L (8-16); BLOOD UREA NITROGEN 14 mg/dL (7-26); BUN/CREATININE RATIO 19 (6-25); CALCIUM 9.8 mg/dL (8.4-10.2); CARBON DIOXIDE 26 mmol/L (22-29); CHLORIDE 100 mmol/L (98-107); CREATININE, SERUM 0.74 mg/dL (0.57-1.11); EST GLOMERULAR FILTRATION RATE > 60 ML/MIN (60-); GLUCOSE 93 mg/dL (74-118); POTASSIUM 3.4 mmol/L (3.5-5.1); SODIUM 136 mmol/L (136-145)
[2019-09-09] MEDS ORDERED: NITROFURANTOIN MACROCRYSTALS 100 MG CAP PO ONE (17:15)
[2019-09-09] MEDS ORDERED: PHENAZOPYRIDINE HCL 100 MG TAB PO ONE (17:15)
[2019-09-09] MEDS ORDERED: DIATRIZOATE MEGL/DIATRIZOA SOD 30 ML BTL PO ONE (17:43)
[2019-09-09] MEDS ORDERED: POTASSIUM CHLORIDE 20 MEQ TAB CR PO ONE (17:58)
[2019-09-09] MEDS ORDERED: KETOROLAC TROMETHAMINE 30 MG/ML VIAL IV STA (20:05)
[2019-09-09] MEDS ORDERED: KETOROLAC TROMETHAMINE 60 MG/2 ML VIAL IM ONE (20:15)
--- NOTE | 2019-09-09 20:50 | Diagnostic Imaging Report ---
EXAM: CT Abdomen and Pelvis WITHOUT contrast INDICATION: Left lower quadrant. COMPARISON: None. TECHNIQUE: Abdomen and pelvis were scanned utilizing a multidetector helical scanner from the lung base to the pubic symphysis without administration of IV contrast. Absence of intravenous contrast decreases sensitivity for detection of focal lesions and vascular pathology. Coronal and sagittal reformations were obtained. Routine protocol was performed. IV CONTRAST: None ORAL CONTRAST: Gastro COMPLICATIONS: None RADIATION DOSE: Total DLP: 258 mGy*cm Estimated effective dose: (DLP x 0.015 x size factor) mSv CTDIvol has been reviewed. It is below the limits set by the Radiation Protocol Committee (RPC). Dose modulation, iterative reconstruction, and/or weight based adjustment of the mA/kV was utilized to reduce the radiation dose to as low as reasonably achievable. FINDINGS: LINES and TUBES: None. LOWER THORAX: Unremarkable HEPATOBILIARY: There are multiple scattered too small to characterize hypodensities in the liver, likely benign. No biliary ductal dilation. GALLBLADDER: The gallbladder is hydropic. No radio-opaque stones or sludge. No wall thickening. SPLEEN: No splenomegaly. PANCREAS: No focal masses or ductal dilatation. ADRENALS: No adrenal nodules KIDNEYS/URETERS: No hydronephrosis. No cystic or solid mass lesions. No stones. GI TRACT: Colonic diverticuli, with sigmoid colonic wall thickening and pericolonic fat stranding, with perisigmoid tiny air foci. No abnormal distention or evidence of bowel obstruction. Appendix is normal. PELVIC ORGANS/BLADDER: Hysterectomy. A 3.7 x 2.9 x 2.1 cm soft tissue dense mass in the left adnexa contiguous with the sigmoid colonic inflammation could represent ovarian inflammation. Bladder wall thickening and perivesicular fat stranding. LYMPH NODES: No lymphadenopathy. VESSELS: Scattered mild arterial vascular calcifications. PERITONEUM / RETROPERITONEUM: Inflammatory changes about the sigmoid colon as described above. BONES: Unremarkable. SOFT TISSUES: Right gluteal calcified subcutaneous granulomas. Recommend midline laparotomy infraumbilical incision scar intact. IMPRESSION: 1. Sigmoid diverticulitis with microperforation. A 3.7 soft tissue dense mass in the left adnexa contiguous with the sigmoid colonic inflammation could represent ovarian inflammation. Pelvic ultrasound could further characterize. Recommend Gastroenterology referral. 2. Findings of urinary bladder cystitis, possibly reactive. 3. Hydropic gallbladder is a finding which can be seen with cholecystitis. Correlate for right upper quadrant tenderness and consider right upper quadrant ultrasound. Signed by: Khris Valdivia DO on 09/09/2019 8:47 PM
[2019-09-09] MEDS ORDERED: LEVOFLOXACIN 500MG/D5W 100ML IV SCH (21:15)
[2019-09-09] MEDS ORDERED: MORPHINE SULFATE 2 MG/ML SYR 1ML IV PRN (21:15)
[2019-09-09] MEDS: SODIUM CHLORIDE 0.9% 1000ML 1,000 ML IV SCH (21:43)
[2019-09-09] MEDS: METRONIDAZOLE 500MG/NS 100ML 100 ML IV SCH ×2 (22:40→23:00)
[2019-09-09] MEDS: HYDROMORPHONE 1MG/1ML INJ IV PRN (22:40)
[2019-09-10] VITALS (9 sets, daily range): BP systolic 119–130; BP diastolic 57–60
[2019-09-10] MEDS: HYDROMORPHONE 1MG/1ML INJ IV PRN ×8 (01:53→23:40)
[2019-09-10] MEDS: ONDANSETRON HCL INJ 2MG/ML 2ML 2 MG/ML VIAL IV PRN ×4 (01:53→23:40)
--- NOTE | 2019-09-10 02:11 | NUR ---
pt is transferred from er .pt saox3 respirations are even and unlabored Dx diverticulosis with perforated colon and uti .NS RUNNING AT 125 ML/HR .NOTED DRY SKIN TEARS BILATERAL HAND .PT C/O PAIN AT RT LOWER ABD .ORIENTED THE PT TO THE ENVIRONMENT .PT IS NPO .CALL LIGHT WITH IN REACH GIVEN MUIR MEDICATION FOR PAIN .CALL LIGHT WITH IN REACH .CONTINUE TO MONITOR
[2019-09-10] MEDS: SODIUM CHLORIDE 0.9% 1000ML 1,000 ML IV SCH ×3 (05:02→20:38)
[2019-09-10] MEDS ORDERED: CLONAZEPAM 0.5 MG TAB PO PRN (05:15)
[2019-09-10] MEDS ORDERED: PIPER-TAZ 3.375 GM 50 ML IV SCH (06:00)
--- NOTE | 2019-09-10 06:32 | NUR ---
PT C/O PAIN AND GIVEN ORDERED PAIN MEDICATION .CALL LIGHT WITH IN REACH .CONTINUE TO MONITOR
[2019-09-10] MEDS: METRONIDAZOLE 500MG/NS 100ML 100 ML IV SCH ×4 (06:42→17:48)
--- NOTE | 2019-09-10 07:00 | NUR ---
received bedside report. pt is alert resting in bed, no s/s of distress. call light within reach and instructed pt to call RN for help.
--- NOTE | 2019-09-10 07:08 | NUR ---
BEDSIDE REPORT GIVEN TO THE ONCOMING NURSE ,NEW IV STARTED AT RT WRIST.
[2019-09-10 08:20] LABS: BASOPHILS % 0.2 % (0.0-1.0); EOSINOPHILS # (AUTO) 0.1 (0.0-0.4); EOSINOPHILS % 1.5 % (0.0-6.0); HEMATOCRIT 35.4 % (34.2-44.1); HEMOGLOBIN 11.4 g/dL (12.0-16.0); LYMPHOCYTES # (AUTO) 1.5 (1.0-3.2); LYMPHOCYTES % 23.2 % (18.0-39.1); MEAN CORPUSCULAR HEMOGLOBIN 29.5 pg (28-32); MEAN CORPUSCULAR HGB CONC 32.2 g/dL (31-35); MEAN CORPUSCULAR VOLUME 91.5 fL (81-99); MONOCYTES # (AUTO) 0.5 (0.2-0.8); MONOCYTES % 7.4 % (4.4-11.3); NEUTROPHILS # (AUTO) 4.5 (2.1-6.9); NEUTROPHILS % 67.5 % (38.7-80.0); PLATELET COUNT 337 x10e3/uL (140-360); RED BLOOD COUNT 3.87 x10e6/uL (3.6-5.1); RED CELL DISTRIBUTION WIDTH 12.6 % (11.7-14.4)
[2019-09-10] MEDS: PIPER-TAZ 3.375 GM 50 ML IV SCH ×3 (08:30→20:38)
[2019-09-10] MEDS: PANTOPRAZOLE SOD 40 MG TABEC PO SCH ×3 (08:33→20:38)
[2019-09-10] MEDS: SUCRALFATE 1 GM/10 ML SUSP PO SCH ×4 (08:33→20:38)
[2019-09-10 08:41] LABS: ALANINE AMINOTRANSFERASE 6 IU/L (0-55); ALBUMIN/GLOBULIN RATIO 0.9 (0.8-2.0); ALKALINE PHOSPHATASE 54 IU/L (40-150); AMYLASE 19 U/L (25-125); ANION GAP 9.6 mmol/L (8-16); BLOOD UREA NITROGEN 10 mg/dL (7-26); BUN/CREATININE RATIO 15 (6-25); CALCIUM 9.1 mg/dL (8.4-10.2); CARBON DIOXIDE 26 mmol/L (22-29); CHLORIDE 106 mmol/L (98-107); CREATININE, SERUM 0.68 mg/dL (0.57-1.11); EST GLOMERULAR FILTRATION RATE > 60 ML/MIN (60-); GLUCOSE 82 mg/dL (74-118); LIPASE 4 U/L (8-78); POTASSIUM 4.6 mmol/L (3.5-5.1); SODIUM 137 mmol/L (136-145)
--- NOTE | 2019-09-10 12:11 | Consultation ---
DATE OF CONSULTATION: 09/10/2019 HISTORY OF PRESENT ILLNESS: The patient is a 64-year-old female, who is admitted, complaints of left lower quadrant abdominal pain. She has had some pain in this area for about a month with some change in her bowel habits. She had a colonoscopy done 2 weeks ago and was told everything looked okay with no signs of inflammation, no active diverticulitis at that time. She developed worsening pain yesterday and came to the emergency room. Evaluation with CT of the abdomen and pelvis revealed findings suggestive of sigmoid diverticulitis. The patient had surgery about 8 months ago for sigmoid diverticulitis with partial colon resection done at that time. Postop course at that time was complicated by hematoma. She had been doing fairly well up until a month ago when she developed change in her bowel habits requiring her to take laxative. PAST MEDICAL HISTORY: Significant for lupus, anxiety syndrome. MEDICATIONS: At home are clonazepam, Bentyl, [place], Protonix, Carafate, and Ambien. PAST SURGICAL HISTORY: Partial colon resection. ALLERGIES: SHE HAS ALLERGY TO SULFA. FAMILY HISTORY: Noncontributory. SOCIAL HISTORY: The patient does not smoke cigarettes or drink alcohol. REVIEW OF SYSTEMS: As stated above, she has not had any fever. PHYSICAL EXAMINATION: GENERAL: The patient is awake and alert. VITAL SIGNS: Normal. She is not tachycardic. She is afebrile. HEENT: Sclerae are not icteric. NECK: No masses. LUNGS: Equal breath sounds are clear bilaterally. CARDIAC: Regular rate and rhythm with no murmur. ABDOMEN: Tender in the left lower quadrant with localized signs of peritonitis. There is no mass. There is no organomegaly. No distention. EXTREMITIES: No edema. NEUROLOGIC: Grossly intact. LABORATORY TESTS: The white blood cell count on admission was 9.7, repeat 6.6, hemoglobin and hematocrit are normal. Chemistries were essentially normal. ASSESSMENT: A 64-year-old female with sigmoid diverticulitis. RECOMMEND: Continuing the patient on antibiotics. There are no findings that would warrant surgical intervention at this time. Thank you for asking me to see Ms. Delgado. MD ESSIE Godwin/LIZET /[id number]
--- NOTE | 2019-09-10 14:20 | NUR ---
GAVE PACKET OF INFORMATION WITH [facility] [employer] FOR ASSISTANCE WITH LOW TO NO INCOME TO PATIENT. RESOURCES THAT PATIENT MAY BE ABLE TO FOLLOW UP UPON DISCHARGE. PT EDUCATED ON EACH RESOURCE AND UNDERSTANDING HOW TO FOLLOW UP TO SEE IF QUALIFIED FOR EACH RESOURCE.
[2019-09-10] MEDS: ACETAMINOPHEN 1000 MG/100 ML IV PRN ×2 (14:28→20:38)
[2019-09-11] VITALS (8 sets, daily range): BP systolic 116–128; BP diastolic 57–77
[2019-09-11] MEDS: METRONIDAZOLE 500MG/NS 100ML 100 ML IV SCH ×4 (00:11→17:31)
[2019-09-11] MEDS: HYDROMORPHONE 1MG/1ML INJ IV PRN ×7 (02:45→23:14)
[2019-09-11] MEDS: PIPER-TAZ 3.375 GM 50 ML IV SCH ×4 (02:45→21:28)
[2019-09-11] MEDS: ONDANSETRON HCL INJ 2MG/ML 2ML 2 MG/ML VIAL IV PRN ×2 (05:45→23:14)
[2019-09-11] MEDS: SODIUM CHLORIDE 0.9% 1000ML 1,000 ML IV SCH ×3 (06:11→21:28)
--- NOTE | 2019-09-11 07:00 | NUR ---
BEDSIDE SHIFT REPORT RECEIVED FROM THE ROOM SERVICE ATTENDANT RN. EDUCATED PT ABOUT FALL PRECAUTIONS. PT VERBALIZED UNDERSTANDING. CALL LIGHT WITH IN EASY REACH. INSTRUCTED PT TO USE CALL LIGHT FOR ALL THE NEEDS. BED IS LOW AND LOCKED. SIDE RAILS X2. PT DENIES NEEDS AT THIS TIME.
--- NOTE | 2019-09-11 07:10 | NUR ---
Bedside report and rounds completed with oncoming nurse. Patient in bed with call light within reach. No issues or concerns noted.
[2019-09-11] MEDS ORDERED: ACETAMINOPHEN 1000 MG/100 ML 100 ML IV ONE (07:16)
[2019-09-11] MEDS ORDERED: LIDOCAINE HCL (LTA) 4 ML SOLN ONE (07:16)
[2019-09-11] MEDS: SUCRALFATE 1 GM/10 ML SUSP PO SCH ×4 (08:37→21:28)
[2019-09-11] MEDS: PANTOPRAZOLE SOD 40 MG TABEC PO SCH ×3 (08:37→21:28)
--- NOTE | 2019-09-11 19:00 | NUR ---
BEDSIDE SHIFT REPORT GIVEN TO THE TALENT ADVISOR RN. PT DENIED FURTHER NEEDS.
--- NOTE | 2019-09-11 22:08 | NUR ---
Report given to nurse and care transferred. Patient stable, no issues or concerns.
--- NOTE | 2019-09-11 23:00 | NUR ---
Received report from nurse.
--- NOTE | 2019-09-11 23:27 | NUR ---
Patient with no IV. Started IV to left AC X1 stick. Patient tolerated well.
[2019-09-12] VITALS (8 sets, daily range): BP systolic 111–150; BP diastolic 54–81
[2019-09-12] MEDS: PIPER-TAZ 3.375 GM 50 ML IV SCH ×4 (02:00→20:42)
--- NOTE | 2019-09-12 04:07 | NUR ---
Patient c/o headache. Applied cold compress to head. Will get order for tylenol.
[2019-09-12] MEDS: METRONIDAZOLE 500MG/NS 100ML 100 ML IV SCH ×4 (04:57→18:06)
--- NOTE | 2019-09-12 07:00 | NUR ---
BEDSIDE SHIFT REPORT RECEIVED FROM THE CRUSHER SCREEN REPAIRER RN. EDUCATED PT ABOUT FALL PRECAUTIONS. PT VERBALIZED UNDERSTANDING. CALL LIGHT WITH IN EASY REACH. INSTRUCTED PT TO USE CALL LIGHT FOR ALL THE NEEDS. BED IS LOW AND LOCKED. SIDE RAILS X2. PT HAS NO IV ACCESS DUE TO OCCLUSION. PT DENIES NEEDS AT THIS TIME.
--- NOTE | 2019-09-12 07:15 | NUR ---
22 G LEFT UPPER ARM IV REMOVED DUE TO OCCLUSION. TIP INTACT. DRESSING APPLIED. PT DENIED FURTHER NEEDS.
[2019-09-12] MEDS: PANTOPRAZOLE SOD 40 MG TABEC PO SCH ×3 (08:01→20:42)
[2019-09-12] MEDS: SUCRALFATE 1 GM/10 ML SUSP PO SCH ×4 (08:01→20:42)
[2019-09-12] MEDS: HYDROMORPHONE 1MG/1ML INJ IV PRN ×5 (08:02→21:07)
[2019-09-12] MEDS: SODIUM CHLORIDE 0.9% 1000ML 1,000 ML IV SCH ×3 (08:11→21:02)
[2019-09-12] MEDS: ONDANSETRON HCL INJ 2MG/ML 2ML 2 MG/ML VIAL IV PRN (11:46)
--- NOTE | 2019-09-12 14:00 | NUR ---
PAGED DR. WHITE REGARDING ADVANCING THE DIET.
--- NOTE | 2019-09-12 14:58 | NUR ---
Nutrition Screen Note RD Recommendation for Physician: -ADAT to GI soft per MD. -Please consult RD services and consider alternate source of nutrition within the next couple of days if diet is not advanced within the next 48-72 hours. Plan of Care: RD following, monitoring for tolerance and adequacy. Education provided. Ensure Clear BID if pt does not advance her diet. Nutrition reason for involvement: (RN consult-diverticulitis diet education ) Primary Diagnose(s): Diverticulitis of colon with perforation PMH: significant for lupus, anxiety syndrome. Ht: 63 in Wt: 162 lb BMI: 28.7 kg/m2 IBW: [address] Assessment: (09/11): 64 YOF seen resting in her bed, on IVF and IV abx. The pt requested information on her diet she should follow once she is d/c. Gave pt education regarding low fiber diet. Pt is experience diarrhea right now but also has a problem with constipation usually. Recommended constipation tips that also help her follow low fiber diet, reported to the pt to speak with the MD regarding how much fiber she is allotted to have per day and what other medications she can consume if she continues to have constipation during outpatient. The patient has been on clear liquids for three days, she reports she still has diarrhea and some N/V. Chart reviewed. Labs and meds reviewed. Will continue to monitor. Current Diet: clear liquids Malnutrition Evaluation (09/11) The patient does not meet criteria for a specified degree of malnutrition at this time. Will re-evaluate at follow-up as appropriate. Diet Education Needs Assessment: Diet education indicated, pt accepted. Diet Adequacy: Not meeting calorie needs, Not meeting protein needs Learner(s): pt Barriers: none Cultural/Language Modifications: none Readiness: acceptance Method: discussion, handout Topics: Low Fiber Diet Understanding/Compliance: verbalized understanding, anticipate good compliance Nutrition Care Level: low Signed: Jessica Adams, RD, LD
--- NOTE | 2019-09-12 18:50 | NUR ---
BEDSIDE SHIFT REPORT GIVEN TO THE OCC THERAPIST RN. PT DENIED FURTHER NEEDS.
[2019-09-13] VITALS (9 sets, daily range): BP systolic 107–152; BP diastolic 55–72
[2019-09-13] MEDS: HYDROMORPHONE 1MG/1ML INJ IV PRN ×5 (00:15→21:45)
[2019-09-13] MEDS: METRONIDAZOLE 500MG/NS 100ML 100 ML IV SCH ×5 (00:26→23:22)
[2019-09-13] MEDS: SODIUM CHLORIDE 0.9% 1000ML 1,000 ML IV SCH ×3 (02:10→21:02)
[2019-09-13] MEDS: PIPER-TAZ 3.375 GM 50 ML IV SCH ×4 (02:10→20:45)
[2019-09-13] MEDS: ACETAMINOPHEN/ASPIRIN/CAFFEINE 1 EA TAB PO PRN ×2 (03:52→23:23)
[2019-09-13] MEDS ORDERED: HYDROCODONE/APAP 10MG-325MG TAB PO PRN (06:15)
[2019-09-13] MEDS: SUCRALFATE 1 GM/10 ML SUSP PO SCH ×4 (09:07→20:45)
[2019-09-13] MEDS: PANTOPRAZOLE SOD 40 MG TABEC PO SCH ×3 (09:07→20:45)
--- NOTE | 2019-09-13 18:55 | NUR ---
BEDSIDE SHIFT REPORT GIVEN TO THE LEAF SUCKER OPERATOR RN. PT DENIED FURTHER NEEDS.
[2019-09-14] VITALS (8 sets, daily range): BP systolic 116–130; BP diastolic 56–67
[2019-09-14] MEDS: HYDROMORPHONE 1MG/1ML INJ IV PRN ×7 (01:00→23:15)
[2019-09-14] MEDS: PIPER-TAZ 3.375 GM 50 ML IV SCH ×4 (01:49→21:40)
[2019-09-14] MEDS: METRONIDAZOLE 500MG/NS 100ML 100 ML IV SCH ×3 (05:37→20:19)
[2019-09-14] MEDS: SODIUM CHLORIDE 0.9% 1000ML 1,000 ML IV SCH ×3 (05:37→16:52)
[2019-09-14 06:17] LABS: BASOPHILS % 0.5 % (0.0-1.0); EOSINOPHILS # (AUTO) 0.3 (0.0-0.4); EOSINOPHILS % 4.7 % (0.0-6.0); HEMATOCRIT 32.9 % (34.2-44.1); HEMOGLOBIN 10.5 g/dL (12.0-16.0); LYMPHOCYTES % 31.3 % (18.0-39.1); MEAN CORPUSCULAR HEMOGLOBIN 29.3 pg (28-32); MEAN CORPUSCULAR HGB CONC 31.9 g/dL (31-35); MEAN CORPUSCULAR VOLUME 91.9 fL (81-99); MONOCYTES # (AUTO) 0.5 (0.2-0.8); MONOCYTES % 7.9 % (4.4-11.3); NEUTROPHILS # (AUTO) 3.5 (2.1-6.9); NEUTROPHILS % 55.3 % (38.7-80.0); PLATELET COUNT 345 x10e3/uL (140-360); RED BLOOD COUNT 3.58 x10e6/uL (3.6-5.1); RED CELL DISTRIBUTION WIDTH 12.8 % (11.7-14.4)
[2019-09-14 06:34] LABS: ALANINE AMINOTRANSFERASE 6 IU/L (0-55); ALBUMIN 2.9 g/dL (3.5-5.0); ALBUMIN/GLOBULIN RATIO 1.2 (0.8-2.0); ALKALINE PHOSPHATASE 45 IU/L (40-150); ANION GAP 7.2 mmol/L (8-16); BLOOD UREA NITROGEN < 5 mg/dL (7-26); CALCIUM 8.9 mg/dL (8.4-10.2); CARBON DIOXIDE 31 mmol/L (22-29); CHLORIDE 108 mmol/L (98-107); CREATININE, SERUM 0.71 mg/dL (0.57-1.11); EST GLOMERULAR FILTRATION RATE > 60 ML/MIN (60-); GLUCOSE 94 mg/dL (74-118); MAGNESIUM 1.5 MG/DL (1.3-2.1); POTASSIUM 3.2 mmol/L (3.5-5.1); SODIUM 143 mmol/L (136-145)
[2019-09-14 06:40] LABS: BUN/CREATININE RATIO 7 (6-25)
--- NOTE | 2019-09-14 07:01 | NUR ---
BEDSIDE REPORT RECEIVED FROM PM NURSE. PT RESTING IN BED, NO SIGNS OF DISTRESS. WILL CONTINUE TO MONITOR.
[2019-09-14] MEDS: SUCRALFATE 1 GM/10 ML SUSP PO SCH ×4 (09:18→20:19)
[2019-09-14] MEDS: PANTOPRAZOLE SOD 40 MG TABEC PO SCH ×3 (09:18→20:19)
--- NOTE | 2019-09-14 12:41 | NUR ---
CM SPOKE W THIS AM. STATES THE PT WANTED TO GO HOME, BECAUSE HER SON WAS AT [facility] [place]. CM MET W THE PT AND HER BOYFRIEND. STATES SHE DID NOT WANT TO GO HOME, BUT WAS JUST WORRIED ABOUT HER SON. THE BOYFRIEND STATES HE HAD JUST LEFT [facility] AND THE SON HAD BEEN EXTUBATED THIS MORNING. STATES HE WAS STILL NOT RESPONDING, BUT WAS BREATHING W A MASK. PT EXPRESSED HOW SHE WAS FEELING; VERY TEARFUL. STATES SHE WILL WAIT UNTIL THE DOC SAYS SHE IS READY TO GO HOME. THE BOYFRIEND IS HAVING EYE SURGERY THIS PM. CM LEFT CONTACT INFO IF THEY HAD ANY QUESTIONS.
[2019-09-14] MEDS: ZOLPIDEM TARTRATE 10 MG TAB PO PRN (21:40)
[2019-09-15] VITALS (8 sets, daily range): BP systolic 119–148; BP diastolic 58–81
[2019-09-15] MEDS: METRONIDAZOLE 500MG/NS 100ML 100 ML IV SCH ×5 (00:37→23:47)
[2019-09-15] MEDS: PIPER-TAZ 3.375 GM 50 ML IV SCH ×4 (02:29→20:00)
[2019-09-15] MEDS: HYDROMORPHONE 1MG/1ML INJ IV PRN ×7 (02:30→23:15)
[2019-09-15] MEDS ORDERED: POTASSIUM CHLORIDE 20 MEQ TAB CR PO STA (06:20)
[2019-09-15] MEDS: SODIUM CHLORIDE 0.9% 1000ML 1,000 ML IV SCH ×2 (06:21→17:51)
--- NOTE | 2019-09-15 07:07 | NUR ---
BEDSIDE REPORT RECEIVED FROM NURSE TRANSITIONAL RN. PT SLEEPING, EASILY AROUSED, NO SIGNS OF DISTRESS. WILL CONTINUE TO MONITOR.
[2019-09-15] MEDS ORDERED: DIATRIZOATE MEGL/DIATRIZOA SOD 30 ML BTL PO ONE (07:16)
[2019-09-15] MEDS: PANTOPRAZOLE SOD 40 MG TABEC PO SCH ×3 (08:33→20:14)
[2019-09-15] MEDS: SUCRALFATE 1 GM/10 ML SUSP PO SCH ×4 (08:34→20:14)
--- NOTE | 2019-09-15 09:29 | Diagnostic Imaging Report ---
EXAMINATION: CT of the abdomen and pelvis without contrast. TECHNIQUE: Spiral CT images of the abdomen and pelvis were performed from the lung bases to the lesser trochanters. No intravenous contrast was given per physician's request. Oral dilute Gastrografin was administered. Coronal and sagittal reformatted images were obtained. COMPARISON: CT abdomen and pelvis without contrast 09/09/2019 CLINICAL HISTORY:Perforated diverticulitis, follow-up DISCUSSION: ABSENCE OF INTRAVENOUS CONTRAST DECREASES SENSITIVITY FOR DETECTION OF FOCAL LESIONS AND VASCULAR PATHOLOGY. ABDOMEN/PELVIS: LOWER THORAX: Linear subsegmental atelectasis in bilateral lower lobes HEPATOBILIARY: Stable 1.5 cm fluid density simple cyst in hepatic segment IV (series 2, image 21). No other focal lesions. No intra or extrahepatic biliary ductal dilation. GALLBLADDER: No radio-opaque stones or sludge. No wall thickening. SPLEEN: No splenomegaly. PANCREAS: No focal masses or ductal dilatation. ADRENALS: No adrenal nodules. KIDNEYS/URETERS: No hydronephrosis, stones, or solid mass lesions. PELVIC ORGANS/BLADDER: Bladder is unremarkable. No focal lesions or wall thickening. Uterus is absent. The left ovary is not clearly identified. PERITONEUM/RETROPERITONEUM: No free air or fluid. LYMPH NODES: No intra-abdominal,retroperitoneal, pelvic or inguinal lymphadenopathy. VESSELS: Mild atherosclerotic calcification of distal abdominal aorta. GI TRACT: Distal descending and sigmoid colon diverticulosis. There is an approximately 5-6 cm segment of the proximal sigmoid colon which shows moderate eccentric wall thickening (series 2, image 63), with an associated 3.9 x 1.7 cm structure in its lateral aspect containing soft tissue and air. No bowel dilation or evidence of obstruction. Appendix is well identified and normal in caliber. BONES AND SOFT TISSUES: No aggressive lytic lesions. Calcified injection granulomas in the right gluteal region. IMPRESSION: 1. 3.9 x 1.7 cm structure lateral to the proximal sigmoid colon likely represents a contained perforation in this patient with sigmoid diverticulitis, with adjacent ovarian inflammatory changes. Unable to assess for abscess, as no intravenous contrast was administered. No oral contrast extravasation is seen. No maria l pneumoperitoneum. Signed by: Dr. Raymundo Morales M.D. on 09/15/2019 9:25 AM
--- NOTE | 2019-09-15 18:50 | NUR ---
BS nursing shift report completed with morning nurse. Pt alert and oriented to name. Pt denies pain at this time. Call light within reach. Bed locked.
[2019-09-15] MEDS: ZOLPIDEM TARTRATE 10 MG TAB PO PRN (20:14)
[2019-09-16] VITALS (8 sets, daily range): BP systolic 110–131; BP diastolic 56–62
[2019-09-16] MEDS: PIPER-TAZ 3.375 GM 50 ML IV SCH ×4 (02:00→20:00)
[2019-09-16] MEDS: HYDROMORPHONE 1MG/1ML INJ IV PRN ×6 (04:05→21:40)
[2019-09-16] MEDS: METRONIDAZOLE 500MG/NS 100ML 100 ML IV SCH ×3 (05:55→18:31)
[2019-09-16] MEDS: SODIUM CHLORIDE 0.9% 1000ML 1,000 ML IV SCH ×4 (05:55→21:02)
[2019-09-16] MEDS: ACETAMINOPHEN/ASPIRIN/CAFFEINE 1 EA TAB PO PRN (06:10)
--- NOTE | 2019-09-16 07:05 | NUR ---
RECEIVED REPORT FROM PM RN, PT AWAKE, ALERT, ORIENTED X3. NO SIGNS OF DISTRESS. WILL CONTINUE TO MONITOR.
--- NOTE | 2019-09-16 08:25 | Progress Note ---
DATE: SUBJECTIVE: This is a 64-year-old female who comes in with diverticulitis with perforation. The patient's last CT scan done yesterday showed a 0.9 x 1.7 cm structure lateral to the proximal sigmoid, likely representing a contained perforation with adjacent ovarian inflammatory changes, unable to assess for abscess. The patient continues to be still in pain. No chest pain. Pelvic pain present. OBJECTIVE: VITAL SIGNS: Temperature is 98.4, afebrile; pulse of 90; respirations of 20; blood pressure is 125/60; pulse oximetry of 93%. HEENT: Normocephalic, atraumatic. Pupils are reactive. CVS: S1 and S2 normal. Regular rate and rhythm. ABDOMEN: Tender in the left lower quadrant and also in the left pelvis. EXTREMITIES: No clubbing. No cyanosis. No edema. LABORATORY VALUES: White count of 6.35, hemoglobin of 10.5, hematocrit of 32.9. Chemistries from 13th, potassium 3.2, BUN less than 5, creatinine of 0.71. IMAGING STUDIES: As mentioned above. ASSESSMENT: Ms. Syeda Delgado with acute diverticulitis with diverticular perforation with containment. PLAN: An interventional radiology consult has been done. We will probably need IR to drain the abscess. White count continues to be normal; we will recheck it tomorrow. Further recommendation per clinical course. Antibiotics are on board at this time too; the patient is getting Zosyn and metronidazole. MD MARY CARMEN Mckinnon/MODL /[id number]
[2019-09-16 08:43] LABS: INR 0.85; PROTHROMBIN TIME 12.1 seconds (11.9-14.5)
[2019-09-16] MEDS: PANTOPRAZOLE SOD 40 MG TABEC PO SCH ×3 (08:47→20:30)
[2019-09-16] MEDS: SUCRALFATE 1 GM/10 ML SUSP PO SCH ×4 (08:47→20:30)
--- NOTE | 2019-09-16 19:00 | NUR ---
Completed BS nursing shift report with morning nurse. Pt alert and oriented to name. Pt denies pain at this time. Call light within reach. Bed locked.
[2019-09-16] MEDS: ZOLPIDEM TARTRATE 10 MG TAB PO PRN (21:00)
[2019-09-17] VITALS (8 sets, daily range): BP systolic 122–137; BP diastolic 57–68
[2019-09-17] MEDS: METRONIDAZOLE 500MG/NS 100ML 100 ML IV SCH ×5 (00:30→23:40)
[2019-09-17] MEDS: HYDROMORPHONE 1MG/1ML INJ IV PRN ×9 (00:45→23:35)
[2019-09-17] MEDS: PIPER-TAZ 3.375 GM 50 ML IV SCH ×4 (02:00→20:00)
[2019-09-17 05:57] LABS: BASOPHILS % 0.4 % (0.0-1.0); EOSINOPHILS # (AUTO) 0.2 (0.0-0.4); EOSINOPHILS % 3.3 % (0.0-6.0); HEMATOCRIT 34.9 % (34.2-44.1); HEMOGLOBIN 11.3 g/dL (12.0-16.0); LYMPHOCYTES # (AUTO) 1.2 (1.0-3.2); LYMPHOCYTES % 23.5 % (18.0-39.1); MEAN CORPUSCULAR HEMOGLOBIN 29.6 pg (28-32); MEAN CORPUSCULAR HGB CONC 32.4 g/dL (31-35); MEAN CORPUSCULAR VOLUME 91.4 fL (81-99); MONOCYTES # (AUTO) 0.6 (0.2-0.8); MONOCYTES % 11.3 % (4.4-11.3); NEUTROPHILS # (AUTO) 3.2 (2.1-6.9); NEUTROPHILS % 61.1 % (38.7-80.0); PLATELET COUNT 374 x10e3/uL (140-360); RED BLOOD COUNT 3.82 x10e6/uL (3.6-5.1); RED CELL DISTRIBUTION WIDTH 13.5 % (11.7-14.4)
[2019-09-17 06:15] LABS: ANION GAP 11.7 mmol/L (8-16); BLOOD UREA NITROGEN < 5 mg/dL (7-26); CALCIUM 8.7 mg/dL (8.4-10.2); CARBON DIOXIDE 28 mmol/L (22-29); CHLORIDE 106 mmol/L (98-107); CREATININE, SERUM 0.66 mg/dL (0.57-1.11); EST GLOMERULAR FILTRATION RATE > 60 ML/MIN (60-); GLUCOSE 95 mg/dL (74-118); SODIUM 143 mmol/L (136-145)
--- NOTE | 2019-09-17 06:20 | NUR ---
Informed by lab K 2.7. Communicated with Dr. Huynh ordered KCL 40 Meq x1 now and another dose at 1400. Pt denies any change in health or behavior. Will continue to monitor.
[2019-09-17 06:21] LABS: BUN/CREATININE RATIO 8 (6-25); POTASSIUM 2.7 mmol/L (3.5-5.1)
--- NOTE | 2019-09-17 07:00 | NUR ---
BEDSIDE SHIFT REPORT RECEIVED FROM THE AUTOMOBILE MECHANIC MOTOR RN. PT IS ON NPO. EDUCATED PT ABOUT FALL PRECAUTIONS. PT VERBALIZED UNDERSTANDING. CALL LIGHT WITH IN EASY REACH. INSTRUCTED PT TO USE CALL LIGHT FOR ALL THE NEEDS. BED IS LOW AND LOCKED. SIDE RAILS X2. PT DENIES NEEDS AT THIS TIME.
[2019-09-17] MEDS: ACETAMINOPHEN/ASPIRIN/CAFFEINE 1 EA TAB PO PRN ×2 (07:13→16:13)
[2019-09-17] MEDS ORDERED: POTASSIUM CHLORIDE 20 MEQ TAB CR PO ONE ×2 (07:40→14:00)
[2019-09-17] MEDS: SUCRALFATE 1 GM/10 ML SUSP PO SCH ×4 (09:00→20:18)
[2019-09-17] MEDS: PANTOPRAZOLE SOD 40 MG TABEC PO SCH ×3 (09:00→20:18)
[2019-09-17] MEDS: SODIUM CHLORIDE 0.9% 1000ML 1,000 ML IV SCH ×2 (09:02→12:21)
--- NOTE | 2019-09-17 09:06 | NUR ---
Nutrition Screen Note RD Recommendation for Physician: -ADAT to GI soft per MD. Plan of Care: RD following, monitoring for tolerance and adequacy. Education provided. Nutrition reason for involvement: f/u Primary Diagnose(s): Diverticulitis of colon with perforation PMH: significant for lupus, anxiety syndrome. Ht: 63 in Wt: 162 lb BMI: 28.7 kg/m2 IBW: [address] Assessment: 09/16: Follow up: Pt was seen resting in bed, pt is currently NPO d/t pending IR procedure today. The pt was advanced to a regular diet on 09/11, she reported she has been tolerating it and her appetite has improved. She denied N/V, stated she still has diarrhea. Pt had no other questions or concerns at this time. Pt had CT performed two days ago. LBM: 09/15. Pt has been consuming 50-100% of her meals per FS. K was low- it is being replaced. Will continue to monitor. (09/11): 64 YOF seen resting in her bed, on IVF and IV abx. The pt requested information on her diet she should follow once she is d/c. Gave pt education regarding low fiber diet. Pt is experience diarrhea right now but also has a problem with constipation usually. Recommended constipation tips that also help her follow low fiber diet, reported to the pt to speak with the MD regarding how much fiber she is allotted to have per day and what other medications she can consume if she continues to have constipation during outpatient. The patient has been on clear liquids for three days, she reports she still has diarrhea and some N/V. Chart reviewed. Labs and meds reviewed. Will continue to monitor. Current Diet: clear liquids Malnutrition Evaluation (09/11) The patient does not meet criteria for a specified degree of malnutrition at this time. Will re-evaluate at follow-up as appropriate. Diet Education Needs Assessment: Diet education indicated, pt accepted. Diet Adequacy: Not meeting calorie needs, Not meeting protein needs-pt is currently NPO for procedure but was meeting needs yesterday Learner(s): pt Barriers: none Cultural/Language Modifications: none Readiness: acceptance Method: discussion, handout Topics: Low Fiber Diet Understanding/Compliance: verbalized understanding, anticipate good compliance Nutrition Care Level: low Signed: Jessica Adams, RD, LD
--- NOTE | 2019-09-17 09:35 | NUR ---
CALL RECEIVED FROM RADIOLOGY AND INFORMED ABOUT CANCELLING THE PROCEDURE. PER DR. MANDUJANO, NO NEED OF DRAINAGE ON DIVERTICULITIS ABSCESS SINCE IT IS TOO SMALL. PAGED DR. WHITE AND INFORMED THE SAME. PUT PT BACK ON REGULAR DIET PER DR. WHITE.
--- NOTE | 2019-09-17 09:45 | NUR ---
BRITANY ELLINGTON AND INFORMED THE CANCELLATION OF THE PROCEDURE BY RADIOLOGY.
--- NOTE | 2019-09-17 11:15 | NUR ---
ASSESSMENT: Spiritual concern Pt worried about son who is a heart patient at a nearby hospital. Pt's at bedside. Pt's states her son sent a "text this morning so he must be doing better." Pt states many people are praying for her. Intervention: Provided unhurried calming presence. Facilitated illness review. Outcome: Pt and expressed appreciation for visit. No need to follow at this time. DOUG CARRANZA Derrick Worker [facility] Department O: [phone] Pager: [phone] ([phone] number calling from)
--- NOTE | 2019-09-17 19:00 | NUR ---
BEDSIDE SHIFT REPORT GIVEN TO THE HACK DRIVER RN. PT DENIED FURTHER NEEDS.
--- NOTE | 2019-09-17 19:15 | NUR ---
patient received awake, alert, lying quietly in bed. no c/o pain noted. ivf continue to infuse without difficulty. pm assessment complete. patient instructed to call for assistance when needed.
[2019-09-17] MEDS: ONDANSETRON HCL INJ 2MG/ML 2ML 2 MG/ML VIAL IV PRN (20:18)
[2019-09-18] VITALS (8 sets, daily range): BP systolic 117–141; BP diastolic 56–66
[2019-09-18] MEDS: PIPER-TAZ 3.375 GM 50 ML IV SCH ×4 (01:56→19:47)
[2019-09-18] MEDS: SODIUM CHLORIDE 0.9% 1000ML 1,000 ML IV SCH ×2 (05:02→12:28)
[2019-09-18] MEDS: METRONIDAZOLE 500MG/NS 100ML 100 ML IV SCH ×4 (05:38→23:41)
[2019-09-18 06:56] LABS: ALANINE AMINOTRANSFERASE 16 IU/L (0-55); ALBUMIN 2.9 g/dL (3.5-5.0); ALBUMIN/GLOBULIN RATIO 1.1 (0.8-2.0); ALKALINE PHOSPHATASE 42 IU/L (40-150); ANION GAP 8.5 mmol/L (8-16); BLOOD UREA NITROGEN 5 mg/dL (7-26); BUN/CREATININE RATIO 8 (6-25); CALCIUM 8.8 mg/dL (8.4-10.2); CARBON DIOXIDE 26 mmol/L (22-29); CHLORIDE 113 mmol/L (98-107); CREATININE, SERUM 0.64 mg/dL (0.57-1.11); EST GLOMERULAR FILTRATION RATE > 60 ML/MIN (60-); GLUCOSE 93 mg/dL (74-118); POTASSIUM 3.5 mmol/L (3.5-5.1); SODIUM 144 mmol/L (136-145)
--- NOTE | 2019-09-18 07:00 | NUR ---
BEDSIDE SHIFT REPORT RECEIVED FROM THE TARGET AIRCRAFT TECHNICIAN RN. EDUCATED PT ABOUT FALL PRECAUTIONS. INSTRUCTED PT TO USE CALL LIGHT FOR ALL THE NEEDS. PT VERBALIZED UNDERSTANDING. CALL LIGHT WITH IN EASY REACH. BED IS LOW AND LOCKED. SIDE RAILS X2. PT DENIES NEEDS AT THIS TIME.
[2019-09-18 07:12] LABS: BASOPHILS % 0.8 % (0.0-1.0); EOSINOPHILS # (AUTO) 0.2 (0.0-0.4); EOSINOPHILS % 3.8 % (0.0-6.0); HEMATOCRIT 34.7 % (34.2-44.1); HEMOGLOBIN 10.6 g/dL (12.0-16.0); LYMPHOCYTES # (AUTO) 1.2 (1.0-3.2); LYMPHOCYTES % 23.8 % (18.0-39.1); MEAN CORPUSCULAR HEMOGLOBIN 29.4 pg (28-32); MEAN CORPUSCULAR HGB CONC 30.5 g/dL (31-35); MEAN CORPUSCULAR VOLUME 96.4 fL (81-99); MONOCYTES # (AUTO) 0.5 (0.2-0.8); MONOCYTES % 9.8 % (4.4-11.3); NEUTROPHILS # (AUTO) 3.1 (2.1-6.9); NEUTROPHILS % 61.4 % (38.7-80.0); PLATELET COUNT 343 x10e3/uL (140-360); RED CELL DISTRIBUTION WIDTH 13.9 % (11.7-14.4)
[2019-09-18] MEDS: FLUTICASONE PROPIONATE NASAL SPRAY NS PRN (08:25)
[2019-09-18] MEDS: MONTELUKAST SODIUM 10 MG TAB PO SCH (08:52)
[2019-09-18] MEDS: PANTOPRAZOLE SOD 40 MG TABEC PO SCH ×3 (08:52→20:37)
[2019-09-18] MEDS: SUCRALFATE 1 GM/10 ML SUSP PO SCH ×4 (08:52→20:37)
[2019-09-18] MEDS: HYDROMORPHONE 1MG/1ML INJ IV PRN ×5 (08:53→22:49)
[2019-09-18 13:10] LABS: EOSINOPHILS % (MANUAL) 3 % (0-7); LYMPHOCYTES % (MANUAL) 29 % (19-48); METAMYELOCYTES % (MANUAL) 1 % (0-0); MONOCYTES % (MANUAL) 10 % (3.4-9.0); NEUTROPHILS % (MANUAL) 57 % (40-74)
[2019-09-18 13:11] LABS: PLATELET ESTIMATE ADEQUATE; PLATELET MORPHOLOGY COMMENT NORMAL; RBC MORPHOLOGY COMMENT NORMAL
--- NOTE | 2019-09-18 18:45 | NUR ---
BEDSIDE SHIFT REPORT GIVEN TO THE CABLE TELEVISION ACCESS COORDINATOR RN. PT DENIED FURTHER NEEDS.
--- NOTE | 2019-09-18 19:15 | NUR ---
patient received awake, alert, lying quietly in bed. no c/o pain noted. ivf continue to infuse without difficulty. pm assessment complete. call rodriguez placed within reach. patient instructed to call for assistance when needed.
[2019-09-19] VITALS (8 sets, daily range): BP systolic 114–135; BP diastolic 57–64
[2019-09-19] MEDS: PIPER-TAZ 3.375 GM 50 ML IV SCH ×4 (01:20→20:54)
[2019-09-19] MEDS: HYDROMORPHONE 1MG/1ML INJ IV PRN ×7 (02:29→23:57)
--- NOTE | 2019-09-19 05:00 | NUR ---
swelling noted to left hand iv site. iv d/c'd and 20 gauge placed to right wrist x 1 stick.
[2019-09-19] MEDS: SODIUM CHLORIDE 0.9% 1000ML 1,000 ML IV SCH ×3 (05:02→23:57)
[2019-09-19] MEDS: METRONIDAZOLE 500MG/NS 100ML 100 ML IV SCH ×4 (05:23→23:48)
[2019-09-19] MEDS: ACETAMINOPHEN/ASPIRIN/CAFFEINE 1 EA TAB PO PRN ×2 (05:30→16:37)
--- NOTE | 2019-09-19 07:00 | NUR ---
BEDSIDE SHIFT REPORT RECEIVED FROM THE LOUVER DOOR ASSEMBLER RN. BED IS LOW AND LOCKED. SIDE RAILS X2. CALL LIGHT WITH IN EASY REACH. INSTRUCTED PT TO USE CALL LIGHT FOR ALL THE NEEDS.EDUCATED PT ABOUT FALL PRECAUTIONS. PT VERBALIZED UNDERSTANDING. PT DENIES NEEDS AT THIS TIME.
[2019-09-19] MEDS: MONTELUKAST SODIUM 10 MG TAB PO SCH (09:06)
[2019-09-19] MEDS: PANTOPRAZOLE SOD 40 MG TABEC PO SCH ×3 (09:06→20:54)
[2019-09-19] MEDS: SUCRALFATE 1 GM/10 ML SUSP PO SCH ×4 (09:06→20:54)
[2019-09-19] MEDS ORDERED: CITRATE OF MAGNESIA 300ML BOTTLE PO ONE (10:00)
[2019-09-19] MEDS: ERYTHROMYCIN 500 MG TAB PO SCH ×3 (12:44→23:48)
[2019-09-19] MEDS: NEOMYCIN SULFATE 500 MG TAB PO SCH ×3 (13:00→23:48)
[2019-09-19] MEDS ORDERED: MINERAL OIL 132 ML BTL PR ONE (14:00)
--- NOTE | 2019-09-19 19:00 | NUR ---
BEDSIDE SHIFT REPORT GIVEN TO THE DIRECTOR OF STRATEGIC COMMUNICATIONS RN. PT DENIED FURTHER NEEDS.
--- NOTE | 2019-09-19 19:08 | NUR ---
Received bedside report from day nurse. Patient resting in bed, no s/s of distress or c/o pain at this time. All safety measures in place. Will continue to monitor.
[2019-09-19] MEDS: ONDANSETRON HCL INJ 2MG/ML 2ML 2 MG/ML VIAL IV PRN ×2 (19:38→23:57)
--- NOTE | 2019-09-19 19:55 | Consultation ---
DATE OF CONSULTATION: 09/19/2019 Urology Consultation. REASON FOR CONSULTATION: Need for ureteral stents. HISTORY OF PRESENT ILLNESS: Syeda Delgado is a 64-year-old woman who previously saw Dr. Modi many years ago for recurrent urinary tract infections. The patient denies any hematuria. She denies any current dysuria. The patient has both urge and stress type urinary incontinence. The patient is pending a bowel resection surgery for diverticulitis that is perforated and urological consultation was sought in order to place indwelling ureteral stents. The patient has never had any urological surgery. PAST MEDICAL AND SURGICAL HISTORY: 1. Lupus. 2. Anxiety disorder. 3. Diverticulitis. 4. Status post bilateral total knee arthroplasty done simultaneously. 5. Status post total abdominal hysterectomy without oophorectomy. 6. 3, para 3 by vaginal delivery. 7. Prior partial colon resection. FAMILY HISTORY: Noncontributory to the active urological problem. ALLERGIES: SULFA. CURRENT MEDICATIONS: Please refer to the MAR. SOCIAL HISTORY: The patient denies smoking, ethanol, or drug use. She is currently disabled high school business teacher. She has a supportive at the bedside. REVIEW OF SYSTEMS: Consistent with above history of present illness and past medical history, otherwise negative for all systems. PHYSICAL EXAMINATION: GENERAL: Relatively healthy-appearing, 64-year-old woman, walking around the room, in no apparent distress. VITAL SIGNS: She is currently afebrile. Vital signs currently stable. ABDOMEN: Soft, nondistended, without any mass. For the remaining physical examination systems, please refer to admission history and physical and the ERT sheet. LABORATORY STUDIES: White blood cell count is 5000, hemoglobin 10.6, platelets 343,000. The patient's potassium was low down to 3.2, but it has since normalized. The patient's urinalysis significant for 21-50 RBCs, 21-50 WBCs, many epithelial cells consistent with a qqu-[id number]-emmqo urinary specimen, moderate calcium oxalate crystals, and moderate bacteria. CT scan of the abdomen and pelvis on September 08 revealed sigmoid diverticulitis with microperforation with a 3.7 cm soft tissue dense mass in the left adnexa, continuous with the sigmoid colonic inflammation and cystitis as well as hydropic gallbladder. The patient had a followup CT, which revealed some improvement, but inability to assess the abscess, which seems to be about the same size. ASSESSMENT: 1. Perforated diverticulitis. 2. Urinary tract infections. 3. Microhematuria. 4. Anemia. 5. Hypokalemia that improved. 6. Mixed type urinary incontinence. PLAN: 1. We will do cystoscopy and place bilateral ureteral stents for the General Surgery Service to proceed with the procedure tomorrow. 2. I instructed the patient that once she is back in her usual health to follow up in the office for management of her recurrent infections as well as urinary incontinence. Thank you much for involving us in care of your patient. We will be happy to follow her as needed. Chito MD DARI Ortiz/LIZET /[id number]
--- NOTE | 2019-09-19 21:50 | NUR ---
Informed Dr. Huynh that order for Flagyl reached its stop date. Per Dr. Huynh, renew order.
[2019-09-20] VITALS (8 sets, daily range): BP systolic 114–129; BP diastolic 56–63
[2019-09-20] MEDS: HYDROMORPHONE 1MG/1ML INJ IV PRN ×4 (02:53→20:55)
[2019-09-20] MEDS: PIPER-TAZ 3.375 GM 50 ML IV SCH ×3 (02:53→20:55)
[2019-09-20] MEDS: FLUTICASONE PROPIONATE NASAL SPRAY NS PRN (02:53)
--- NOTE | 2019-09-20 05:14 | NUR ---
Notified Dr. Huynh that patient is running a temperature of 100.4. Received orders to give a one-time dose of IV Tylenol.
[2019-09-20] MEDS: ACETAMINOPHEN 1000 MG/100 ML IV STA (05:41)
[2019-09-20 05:47] LABS: BASOPHILS % 0.2 % (0.0-1.0); EOSINOPHILS # (AUTO) 0.1 (0.0-0.4); EOSINOPHILS % 0.8 % (0.0-6.0); HEMATOCRIT 33.1 % (34.2-44.1); HEMOGLOBIN 10.4 g/dL (12.0-16.0); LYMPHOCYTES # (AUTO) 1.2 (1.0-3.2); LYMPHOCYTES % 18.7 % (18.0-39.1); MEAN CORPUSCULAR HEMOGLOBIN 29.1 pg (28-32); MEAN CORPUSCULAR HGB CONC 31.4 g/dL (31-35); MEAN CORPUSCULAR VOLUME 92.5 fL (81-99); MONOCYTES # (AUTO) 0.5 (0.2-0.8); MONOCYTES % 7.1 % (4.4-11.3); NEUTROPHILS # (AUTO) 4.6 (2.1-6.9); NEUTROPHILS % 72.7 % (38.7-80.0); PLATELET COUNT 294 x10e3/uL (140-360); RED BLOOD COUNT 3.58 x10e6/uL (3.6-5.1); RED CELL DISTRIBUTION WIDTH 13.6 % (11.7-14.4)
[2019-09-20 06:15] LABS: ALBUMIN 2.9 g/dL (3.5-5.0); ALKALINE PHOSPHATASE 40 IU/L (40-150); ANION GAP 11.6 mmol/L (8-16); BLOOD UREA NITROGEN < 5 mg/dL (7-26); CALCIUM 8.2 mg/dL (8.4-10.2); CARBON DIOXIDE 23 mmol/L (22-29); CHLORIDE 108 mmol/L (98-107); CREATININE, SERUM 0.67 mg/dL (0.57-1.11); EST GLOMERULAR FILTRATION RATE > 60 ML/MIN (60-); GLUCOSE 98 mg/dL (74-118); MAGNESIUM 1.6 MG/DL (1.3-2.1); SODIUM 140 mmol/L (136-145)
[2019-09-20 06:18] LABS: BUN/CREATININE RATIO 7 (6-25)
[2019-09-20 06:19] LABS: POTASSIUM 2.6 mmol/L (3.5-5.1)
--- NOTE | 2019-09-20 06:22 | NUR ---
Notified Dr. Huynh regarding patient's potassium level of 2.6. Received orders to give 60 mEq potassium IV x 1, and to let Dr. Piper know.
--- NOTE | 2019-09-20 06:27 | NUR ---
Paged Dr. Piper to notify him of patient's status per Dr. Huynh's orders. Awaiting return call at this time.
[2019-09-20] MEDS ORDERED: POTASSIUM CHLORIDE 20MEQ/100ML 300 ML IV ONE (06:30)
--- NOTE | 2019-09-20 06:30 | NUR ---
Spoke to Dr. Piper about patient's low potassium. Per Dr. Piper, go ahead and start running IV potassium, and he will speak with anesthesia regarding today's plan for surgery.
[2019-09-20 06:35] LABS: ALANINE AMINOTRANSFERASE 11 IU/L (0-55)
[2019-09-20] MEDS: METRONIDAZOLE 500MG/NS 100ML 100 ML IV SCH ×4 (06:41→23:42)
--- NOTE | 2019-09-20 06:50 | NUR ---
Received bedside shift report from off going nurse. Patient is resting in bed. No acute distress noted. Call light within reach. Bed in the lowest position.
--- NOTE | 2019-09-20 06:58 | NUR ---
Per Dr. Piper, postpone surgery until tomorrow and put patient on clear liquid diet.
[2019-09-20] MEDS: ONDANSETRON HCL INJ 2MG/ML 2ML 2 MG/ML VIAL IV PRN ×2 (07:05→20:55)
--- NOTE | 2019-09-20 07:23 | NUR ---
Bedside report given to day nurse. Patient awake and resting in bed, no s/s of distress at this time. All safety measures in place.
[2019-09-20] MEDS: MONTELUKAST SODIUM 10 MG TAB PO SCH (08:00)
[2019-09-20] MEDS: PANTOPRAZOLE SOD 40 MG TABEC PO SCH ×3 (08:00→20:55)
[2019-09-20] MEDS: SUCRALFATE 1 GM/10 ML SUSP PO SCH ×4 (08:00→20:55)
[2019-09-20] MEDS: ACETAMINOPHEN/ASPIRIN/CAFFEINE 1 EA TAB PO PRN (08:24)
[2019-09-20] MEDS: SODIUM CHLORIDE 0.9% 1000ML 1,000 ML IV SCH ×3 (10:40→22:40)
[2019-09-20] MEDS: HYDROCODONE/APAP 10MG-325MG TAB PO PRN ×3 (11:06→15:38)
--- NOTE | 2019-09-20 19:30 | NUR ---
Received bedside report from day nurse. Patient awake and resting in bed, no s/s of distress at this time. Bed locked and in low position, call light placed within reach. Instructed to call for assistance if needed, verbalized understanding. All safety measures in place. Will continue to monitor.
--- NOTE | 2019-09-20 21:16 | NUR ---
Notified Dr. Huynh of patient's potassium level of 3.4. Received orders to give a one-time dose of 40 mEq potassium PO, and to draw AM labs.
[2019-09-20] MEDS ORDERED: POTASSIUM CHLORIDE 20 MEQ TAB CR PO SCH (21:30)
[2019-09-21] VITALS: BP 140/60
[2019-09-21] MEDS: HYDROMORPHONE 1MG/1ML INJ IV PRN ×4 (00:14→23:18)
[2019-09-21] MEDS: PIPER-TAZ 3.375 GM 50 ML IV SCH ×4 (02:07→20:35)
[2019-09-21] MEDS: ONDANSETRON HCL INJ 2MG/ML 2ML 2 MG/ML VIAL IV PRN (03:13)
[2019-09-21 03:56] LABS: BASOPHILS % 0.4 % (0.0-1.0); EOSINOPHILS % 0.8 % (0.0-6.0); HEMOGLOBIN 10.6 g/dL (12.0-16.0); LYMPHOCYTES # (AUTO) 1.4 (1.0-3.2); LYMPHOCYTES % 27.3 % (18.0-39.1); MEAN CORPUSCULAR HEMOGLOBIN 29.7 pg (28-32); MEAN CORPUSCULAR HGB CONC 32.1 g/dL (31-35); MEAN CORPUSCULAR VOLUME 92.4 fL (81-99); MONOCYTES # (AUTO) 0.4 (0.2-0.8); MONOCYTES % 7.1 % (4.4-11.3); NEUTROPHILS # (AUTO) 3.2 (2.1-6.9); PLATELET COUNT 290 x10e3/uL (140-360); RED BLOOD COUNT 3.57 x10e6/uL (3.6-5.1); RED CELL DISTRIBUTION WIDTH 13.6 % (11.7-14.4)
[2019-09-21 04:00] VITALS: BP 135/64
--- NOTE | 2019-09-21 04:05 | NUR ---
Dr. Huynh here to see patient. Informed him that patient is running temperature of 100.1. Received orders to give one-time dose of IV Tylenol.
[2019-09-21] MEDS ORDERED: ACETAMINOPHEN 1000 MG/100 ML IV STA (04:06)
[2019-09-21 04:17] LABS: ALANINE AMINOTRANSFERASE 11 IU/L (0-55); ALKALINE PHOSPHATASE 38 IU/L (40-150); ANION GAP 12.3 mmol/L (8-16); CALCIUM 8.8 mg/dL (8.4-10.2); CARBON DIOXIDE 25 mmol/L (22-29); CHLORIDE 106 mmol/L (98-107); EST GLOMERULAR FILTRATION RATE > 60 ML/MIN (60-); GLUCOSE 87 mg/dL (74-118); POTASSIUM 3.3 mmol/L (3.5-5.1); SODIUM 140 mmol/L (136-145)
[2019-09-21 04:23] LABS: BLOOD UREA NITROGEN < 2 mg/dL (7-26); BUN/CREATININE RATIO 3 (6-25)
[2019-09-21] MEDS ORDERED: POTASSIUM CHLORIDE 20MEQ/100ML 200 ML IV ONE (04:30)
--- NOTE | 2019-09-21 04:30 | NUR ---
Notified Dr. Huynh of patient's potassium level of 3.3. Received orders to give IV potassium 40 mEq now.
[2019-09-21] MEDS: SODIUM CHLORIDE 0.9% 1000ML 1,000 ML IV SCH ×3 (05:02→21:02)
[2019-09-21] MEDS: METRONIDAZOLE 500MG/NS 100ML 100 ML IV SCH ×3 (05:16→18:46)
--- NOTE | 2019-09-21 06:53 | NUR ---
Bedside shift report given to oncoming nurse. Patient is resting in bed, no acute distress noted. Call light within reach. Bed in the lowest position.
--- NOTE | 2019-09-21 07:05 | NUR ---
Bedside report given to day nurse. Patient awake and resting in bed, no s/s of distress at this time. Bed locked and in low position, call light placed within reach. All safety measures in place.
[2019-09-21 08:09] VITALS: BP 127/60
[2019-09-21 08:15] VITALS: BP 127/60
[2019-09-21] MEDS: PANTOPRAZOLE SOD 40 MG TABEC PO SCH ×3 (08:53→20:49)
[2019-09-21] MEDS: MONTELUKAST SODIUM 10 MG TAB PO SCH (08:53)
[2019-09-21] MEDS: SUCRALFATE 1 GM/10 ML SUSP PO SCH ×4 (08:53→20:49)
--- NOTE | 2019-09-21 09:57 | NUR ---
Spoke to Dr. Luke (anesthesiology) in regards to patient having a bad headache. Per Dr. Luke, ok to give PRN excedrin for headache with a small sip of water.
[2019-09-21] MEDS: ACETAMINOPHEN/ASPIRIN/CAFFEINE 1 EA TAB PO PRN ×2 (10:00→10:12)
[2019-09-21] MEDS ORDERED: NEOSTIGMINE 1 MG/ML 10ML VIAL ONE (11:15)
[2019-09-21] MEDS ORDERED: GLYCOPYRROLATE INJ 0.2 MG/ML VIAL ONE (11:15)
[2019-09-21] MEDS ORDERED: LIDOCAINE HCL 2% LOCAL INJ 5 ML SDV VIAL INJ ONE (11:15)
[2019-09-21] MEDS ORDERED: ONDANSETRON HCL INJ 2MG/ML 2ML 2 MG/ML VIAL ONE (11:15)
[2019-09-21] MEDS ORDERED: SEVOFLURANE INHAL SOLN 250 ML PEN BTL ONE (11:15)
[2019-09-21] MEDS ORDERED: PROPOFOL IV EMULSION 10 MG/ML 20 ML VIAL ONE (11:15)
[2019-09-21] MEDS ORDERED: DEXAMETHASONE SOD PHOS INJ 4 MG/ML VIAL ONE (11:15)
[2019-09-21] MEDS ORDERED: ACETAMINOPHEN 1000 MG/100 ML IV ONE (11:15)
[2019-09-21] MEDS ORDERED: ROCURONIUM BROMIDE 10 MG/ML 5ML VIAL ONE (11:15)
[2019-09-21] MEDS ORDERED: FENTANYL CITRATE/PF 100MCG/2 ML INJ ONE (11:46)
[2019-09-21] MEDS ORDERED: MIDAZOLAM HCL 2 MG/2 ML VIAL ONE (11:46)
[2019-09-21 11:50] VITALS: BP 126/59
--- NOTE | 2019-09-21 13:05 | NUR ---
Patient off unit for procedure at this time.
[2019-09-21] MEDS ORDERED: IOPAMIDOL 300MG/ML 50ML INFUS..BTL IV ONE (13:53)
[2019-09-21] MEDS ORDERED: BUPIVACAINE 0.25% 30ML SDV INJ ONE (13:53)
[2019-09-21] MEDS ORDERED: BUPIVACAINE HCL 0.5% INJ 30 ML VIAL INJ ONE (13:55)
[2019-09-21] MEDS ORDERED: PIPER-TAZ 3.375 GM 50 ML ONE (14:03)
[2019-09-21] MEDS ORDERED: SUGAMMADEX SODIUM 200 MG/2 ML VIAL IV ONE (14:03)
--- NOTE | 2019-09-21 16:15 | NUR ---
Patient is to be transferred to room 100 after surgery, report called in to receiving nurse. SBAR and personal items moved to room at this time.
[2019-09-21] MEDS: DEXTROSE 5%/LACTATED RINGERS 1,000 ML IV SCH (16:20)
[2019-09-21] MEDS ORDERED: KETOROLAC TROMETHAMINE 30 MG/ML VIAL IV PRN (16:30)
[2019-09-21] MEDS ORDERED: DIPHENHYDRAMINE HCL INJ 50 MG/ML VIAL IM PRN (16:30)
[2019-09-21] MEDS ORDERED: NALOXONE HCL INJ 0.4 MG/ML AMP IV PRN (16:30)
[2019-09-21] MEDS ORDERED: ACETAMINOPHEN 1000 MG/100 ML IV PRN (16:30)
[2019-09-21] MEDS ORDERED: HYDROMORPHONE 1MG/1ML INJ ONE (16:48)
[2019-09-21] MEDS: MORPHINE SULFATE 1 MG/ML 30ML PCA IV PRN (16:53)
--- NOTE | 2019-09-21 17:50 | NUR ---
Received patient from PACU. Patient is originally from room 205. ABD with 2 trocar sites and midline dressing, no bleeding noted. Urinary catheter in placed, intact. CLEARANCE REP pump in used. Call light in reach.
--- NOTE | 2019-09-21 19:00 | NUR ---
Report given to night time babysitter. Respiratory even and unlabored without SOB. Call light in reach.
--- NOTE | 2019-09-21 19:30 | Operative Report ---
DATE OF PROCEDURE: 09/21/2019 SURGEON: Maximino Piper MD PREOPERATIVE DIAGNOSIS: Recurrent sigmoid diverticulitis with abscess. POSTOPERATIVE DIAGNOSIS: Recurrent sigmoid diverticulitis with abscess. PROCEDURES: Diagnostic laparoscopy, laparoscopic-assisted sigmoid colon resection with mobilization of splenic flexure of colon. Drainage of intraabdominal abscess and appendectomy. OPERATIONS REPRESENTATIVE: None. ANESTHESIA: General endotracheal. INDICATIONS AND FINDINGS: The patient is a 64-year-old female, who has previous surgery for diverticulitis, this was done about 8 months ago. She was readmitted with new onset of left lower quadrant pain. Workup revealed abscess that could not be drained percutaneously. At Surgery, there was an inflamed segment of colon, which was about 8 cm long. There was abscess between the colon and the abdominal wall, which was drained. The proximal colon was not inflamed nor was the most distal sigmoid. The appendix was removed incidentally. TECHNIQUE: After adequate general endotracheal anesthesia, the patient in supine position, and placed with legs in low stirrups. The patient first underwent cystoscopy, placement of ureteral catheters and Aguilar catheter by Dr. Ortiz. After this was completed with the patient still under anesthesia, with the patient in low stirrups, the abdomen was prepped and draped in sterile fashion with ChloraPrep solution. The perineum was prepped and draped in a sterile fashion with Betadine solution. Skin in the epigastrium in the umbilicus was infiltrated with 0.5% Marcaine. Incision was made in the umbilicus, abdominal wall was elevated and Veress needle was introduced. Pneumoperitoneum was then created. A 5 mm trocar and cannula was then passed through this wound. Laparoscopic camera was introduced. Initial laparoscopy revealed some adhesions to lower midline involving omentum and small bowel. There was inflammatory process involving the sigmoid colon. There was no free fluid. A 5 mm trocar and cannula were placed in the epigastrium and a 5 mm trocar and cannula were placed in the right upper quadrant. Adhesions in the midline were lysed using a LigaSure device. The left colon was mobilized by dividing peritoneal attachments, splenic flexure. The colon was mobilized by dividing peritoneal attachments. There were some adhesions to the spleen, which also were divided using LigaSure device. There was some bleeding from one area just inferior to the spleen, and this was controlled with LigaSure device and hemostasis was achieved. With the splenic flexure, the colon was completely mobilized. The sigmoid colon was mobilized further. There was dense inflammatory reaction on the sigmoid colon. It was decided at this point to convert to open surgery. Lower midline incision was made to tension the peritoneal cavity. Left colon was mobilized by dividing peritoneal attachments. There was an abscess adjacent to the sigmoid colon, which was drained, sample was taken for culture and sensitivity. The colon was freed from the fallopian tube and ovary. Care was taken not to injure the ureters, which were palpable because of this ureter catheters had been placed previously. The sigmoid colon was completely mobilized down to the rectosigmoid junction, which was non-inflamed. Once the colon was completely mobilized, the inflamed segment of colon was resected in the area of the descending colon with the colon, where the colon was not inflamed. This was then divided with a ABHI stapler, mesentery divided with LigaSure device and the distal sigmoid just above the rectum was divided with a ABHI stapler and the sigmoid colon removed. The left colon easily reached the pelvis for anastomosis using a 29 mm EEA stapler anastomosis was done in end-to-end fashion. Proximal colon pursestring suture of 2-0 silk was placed and colotomy made. The anvil was placed into the colon and the pursestring suture tied around the anvil. The stapler was then passed transanally and anastomosis was made without difficulty above both tissue donuts were intact. At this point, the pelvis was filled with saline and air was insufflated transanally, and there was no evidence of any leak. The peritoneal cavity was then irrigated with saline. All fluid aspirated and inspected for hemostasis, which was seen to be adequate. It was irrigated further with saline. All fluid aspirated and inspected once again for hemostasis, which was seen to be adequate. The wounds were then closed. Fascia in the midline closed with running suture of #1 PDS. Subcutaneous tissue was irrigated with saline. Skin to all wounds closed with mars. Sterile dressings applied to each wound. The patient tolerated the procedure well. Estimated blood loss was 150 mL. There were no complications. All counts were correct and the patient was taken to the recovery room in satisfactory condition. MD ESSIE Godwin/MODL /[id number] cc: Molina Huynh MD
[2019-09-21 20:00] VITALS: BP 111/65
[2019-09-21] MEDS ORDERED: MORPHINE SULFATE 1 MG/ML 30ML PCA ONE (23:28)
[2019-09-22] VITALS (9 sets, daily range): BP systolic 109–117; BP diastolic 58–72
[2019-09-22] MEDS: DEXTROSE 5%/LACTATED RINGERS 1,000 ML IV SCH ×3 (00:20→21:13)
[2019-09-22] MEDS: METRONIDAZOLE 500MG/NS 100ML 100 ML IV SCH ×4 (00:40→18:41)
[2019-09-22] MEDS: MORPHINE SULFATE 1 MG/ML 30ML PCA IV PRN (01:40)
[2019-09-22] MEDS: PIPER-TAZ 3.375 GM 50 ML IV SCH ×4 (02:12→20:00)
[2019-09-22] MEDS: SODIUM CHLORIDE 0.9% 1000ML 1,000 ML IV SCH ×3 (04:38→21:02)
[2019-09-22 05:40] LABS: BASOPHILS % 0.1 % (0.0-1.0); HEMATOCRIT 31.5 % (34.2-44.1); LYMPHOCYTES # (AUTO) 1.1 (1.0-3.2); LYMPHOCYTES % 11.6 % (18.0-39.1); MEAN CORPUSCULAR HEMOGLOBIN 29.6 pg (28-32); MEAN CORPUSCULAR HGB CONC 31.7 g/dL (31-35); MEAN CORPUSCULAR VOLUME 93.2 fL (81-99); MONOCYTES # (AUTO) 0.4 (0.2-0.8); MONOCYTES % 4.6 % (4.4-11.3); NEUTROPHILS # (AUTO) 7.6 (2.1-6.9); NEUTROPHILS % 83.4 % (38.7-80.0); PLATELET COUNT 274 x10e3/uL (140-360); RED BLOOD COUNT 3.38 x10e6/uL (3.6-5.1); RED CELL DISTRIBUTION WIDTH 13.6 % (11.7-14.4)
[2019-09-22 05:59] LABS: ANION GAP 9.5 mmol/L (8-16); BLOOD UREA NITROGEN < 5 mg/dL (7-26); CALCIUM 8.6 mg/dL (8.4-10.2); CARBON DIOXIDE 27 mmol/L (22-29); CHLORIDE 107 mmol/L (98-107); CREATININE, SERUM 0.59 mg/dL (0.57-1.11); EST GLOMERULAR FILTRATION RATE > 60 ML/MIN (60-); GLUCOSE 110 mg/dL (74-118); POTASSIUM 3.5 mmol/L (3.5-5.1); SODIUM 140 mmol/L (136-145)
[2019-09-22 06:05] LABS: BUN/CREATININE RATIO 8 (6-25)
--- NOTE | 2019-09-22 07:00 | NUR ---
Received patient lying in bed with eyes open. Respiration even and unlabored without SOB. Urinary catheter intact, secured and in placed. PRODUCT EVANGELIST pump in used. Call light in reach.
[2019-09-22] MEDS: MONTELUKAST SODIUM 10 MG TAB PO SCH (10:48)
[2019-09-22] MEDS: PANTOPRAZOLE SOD 40 MG TABEC PO SCH ×3 (10:48→21:06)
[2019-09-22] MEDS: SUCRALFATE 1 GM/10 ML SUSP PO SCH ×4 (10:48→21:06)
[2019-09-22] MEDS: HYDROMORPHONE 1MG/1ML INJ IV PRN ×3 (11:55→21:00)
[2019-09-22] MEDS: ONDANSETRON HCL INJ 2MG/ML 2ML 2 MG/ML VIAL IV PRN (11:55)
--- NOTE | 2019-09-22 12:15 | NUR ---
Discontinue vargas catheter as ordered, catheter intact. Noted dark darío-colored urine to bag. Denies pain. Addendum: 09/22/19 at 1334 by Tracie Doyle RN Due to void at 1800.
[2019-09-22] MEDS: HYDROCODONE/APAP 10MG-325MG TAB PO PRN (14:01)
--- NOTE | 2019-09-22 15:30 | NUR ---
Patient voided at this time.
--- NOTE | 2019-09-22 19:00 | NUR ---
Report given to night nurse. respiration even and unlabored without SOB. Call light in reach.
[2019-09-23] VITALS (8 sets, daily range): BP systolic 109–134; BP diastolic 49–63
[2019-09-23] MEDS: METRONIDAZOLE 500MG/NS 100ML 100 ML IV SCH ×4 (00:01→17:32)
[2019-09-23] MEDS: PIPER-TAZ 3.375 GM 50 ML IV SCH ×4 (02:00→20:00)
[2019-09-23] MEDS: HYDROCODONE/APAP 7.5MG-325MG 1 EA TAB PO PRN (02:25)
[2019-09-23] MEDS: HYDROMORPHONE 1MG/1ML INJ IV PRN ×5 (04:15→22:40)
[2019-09-23] MEDS: SODIUM CHLORIDE 0.9% 1000ML 1,000 ML IV SCH ×3 (05:02→21:02)
--- NOTE | 2019-09-23 05:42 | NUR ---
DR. ELLINGTON DOING ROUNDS, INFORMED MD OF PT C/O PHLEGM AND SOME CRACKLE SOUNDS WHEN TRYING TO CLEAR THROAT. NEW ORDER RECEIVED FOR SINGULAIR 10MG PO DAILY.
--- NOTE | 2019-09-23 06:50 | NUR ---
Received patient lying in bed with eyes open. Respiration even and unlabored without SOB. Call light in reach.
[2019-09-23] MEDS: SUCRALFATE 1 GM/10 ML SUSP PO SCH ×4 (08:32→20:17)
[2019-09-23] MEDS: ACETAMINOPHEN/ASPIRIN/CAFFEINE 1 EA TAB PO PRN (08:32)
[2019-09-23] MEDS: HYDROCODONE/APAP 10MG-325MG TAB PO PRN ×3 (08:32→20:15)
[2019-09-23] MEDS: MONTELUKAST SODIUM 10 MG TAB PO SCH ×2 (08:32→08:52)
[2019-09-23] MEDS: PANTOPRAZOLE SOD 40 MG TABEC PO SCH ×3 (08:32→20:17)
[2019-09-23] MEDS ORDERED: SODIUM CHLORIDE FLUSH 10 ML SYR INJ PRN (11:45)
--- NOTE | 2019-09-23 19:00 | NUR ---
Report given to night nurse. respiration even and unlabored without SOB. Call light in reach.
[2019-09-24] VITALS (8 sets, daily range): BP systolic 113–137; BP diastolic 61–82
[2019-09-24] MEDS: METRONIDAZOLE 500MG/NS 100ML 100 ML IV SCH ×5 (00:20→23:42)
[2019-09-24] MEDS: HYDROCODONE/APAP 10MG-325MG TAB PO PRN ×3 (00:55→16:57)
[2019-09-24] MEDS: PIPER-TAZ 3.375 GM 50 ML IV SCH ×4 (02:22→20:15)
[2019-09-24] MEDS: HYDROMORPHONE 1MG/1ML INJ IV PRN ×5 (04:00→23:40)
[2019-09-24] MEDS: SODIUM CHLORIDE 0.9% 1000ML 1,000 ML IV SCH ×3 (05:02→21:18)
[2019-09-24] MEDS: ONDANSETRON HCL INJ 2MG/ML 2ML 2 MG/ML VIAL IV PRN ×4 (08:15→23:40)
[2019-09-24] MEDS: MONTELUKAST SODIUM 10 MG TAB PO SCH ×2 (08:29→09:00)
[2019-09-24] MEDS: PANTOPRAZOLE SOD 40 MG TABEC PO SCH ×3 (08:29→20:15)
[2019-09-24] MEDS: SUCRALFATE 1 GM/10 ML SUSP PO SCH ×4 (08:29→20:15)
--- NOTE | 2019-09-24 10:49 | NUR ---
NEW 20G TO LEFT HAND, TOLERATED WELL
--- NOTE | 2019-09-24 12:15 | NUR ---
PT AMBULATING IN HALLWAY, STEADY GAIT, FAMILY AT SIDE
--- NOTE | 2019-09-24 15:45 | NUR ---
Nutrition Intervention Note RD Recommendation for Physician: -Continue current diet as ordered -Ensure Enlive BID for added nutrition Plan of Care: RD following, monitoring for tolerance and adequacy. Nutrition reason for involvement: follow up Primary Diagnose(s): Diverticulitis of colon with perforation PMH: significant for lupus, anxiety syndrome GI: last recorded BM 09/23 Skin: intact Labs: Reviewed Meds: metronidazole, protonix, piperacillin/tazobactam, zofran, Ht: 63 in Wt: 138 (09/23) 162 lb (09/11) Suspect possible weight error BMI: 24.5 kg/m2 IBW: [address] Assessment: 09/23: Follow up. Pt reports that her appetite is decreased at this time and is eating about 1/3 of her meals. Pt was interested in a nutrition supplement for added nutrition. No N/V, but pt reports diarrhea. Pt did not have any questions at time of visit. Will continue to monitor. 09/16: Follow up: Pt was seen resting in bed, pt is currently NPO d/t pending IR procedure today. The pt was advanced to a regular diet on 09/11, she reported she has been tolerating it and her appetite has improved. She denied N/V, stated she still has diarrhea. Pt had no other questions or concerns at this time. Pt had CT performed two days ago. LBM: 09/15. Pt has been consuming 50-100% of her meals per FS. K was low- it is being replaced. Will continue to monitor. (09/11): 64 YOF seen resting in her bed, on IVF and IV abx. The pt requested information on her diet she should follow once she is d/c. Gave pt education regarding low fiber diet. Pt is experience diarrhea right now but also has a problem with constipation usually. Recommended constipation tips that also help her follow low fiber diet, reported to the pt to speak with the MD regarding how much fiber she is allotted to have per day and what other medications she can consume if she continues to have constipation during outpatient. The patient has been on clear liquids for three days, she reports she still has diarrhea and some N/V. Chart reviewed. Labs and meds reviewed. Will continue to monitor. Current Diet: GI soft diet Malnutrition Evaluation (09/11) The patient does not meet criteria for a specified degree of malnutrition at this time. Will re-evaluate at follow-up as appropriate. Estimated Nutritional Needs: [id number] calories/day (25-35 kcal/kg CBW) 63-94 g protein/day (1-1.5 g pro/kg CBW) Diet Adequacy: Not meeting calorie needs, Not meeting protein needs per pt report Tolerance: Tolerating PO Diet Education Needs Assessment: Diet education was previously completed. Pt did not have any questions at time of visit Nutrition Care Level: low Nutrition Diagnosis: Inadequate energy intake related to decreased ability to consume sufficient energy secondary to decreased appetite as evidenced by pt eating <50% of meals per pt report. Goal: Patient will meet 75-100% of estimated needs by follow up Progress: progressing Interventions: Fiber, modified diet, Commercial beverage Monitoring/Evaluation: -Total energy intake, Total protein intake, Modified diet, Liquid supplement, Weight change, Level of knowledge Signed: Christiana Restrepo RD, LD
--- NOTE | 2019-09-24 19:15 | NUR ---
Received bedside report from day nurse. Patient awake and sitting up in bed, no s/s of distress at this time. Bed locked and in low position, call light placed within reach. Instructed to call for assistance if needed, patient verbalized understanding. All safety measures in place. Will continue to monitor.
[2019-09-25] VITALS (9 sets, daily range): BP systolic 115–136; BP diastolic 54–81
[2019-09-25] MEDS: HYDROCODONE/APAP 10MG-325MG TAB PO PRN ×3 (01:53→22:45)
[2019-09-25] MEDS: PIPER-TAZ 3.375 GM 50 ML IV SCH ×4 (01:53→19:47)
[2019-09-25] MEDS: ONDANSETRON HCL INJ 2MG/ML 2ML 2 MG/ML VIAL IV PRN ×2 (03:45→19:47)
[2019-09-25] MEDS: HYDROMORPHONE 1MG/1ML INJ IV PRN ×3 (03:45→19:47)
[2019-09-25] MEDS: METRONIDAZOLE 500MG/NS 100ML 100 ML IV SCH ×3 (06:02→17:57)
[2019-09-25] MEDS: SODIUM CHLORIDE 0.9% 1000ML 1,000 ML IV SCH ×2 (06:04→13:02)
[2019-09-25] MEDS: ACETAMINOPHEN/ASPIRIN/CAFFEINE 1 EA TAB PO PRN (06:07)
[2019-09-25 06:52] LABS: BASOPHILS % 0.2 % (0.0-1.0); EOSINOPHILS # (AUTO) 0.6 (0.0-0.4); EOSINOPHILS % 6.1 % (0.0-6.0); HEMATOCRIT 27.2 % (34.2-44.1); HEMOGLOBIN 8.9 g/dL (12.0-16.0); LYMPHOCYTES # (AUTO) 1.5 (1.0-3.2); MEAN CORPUSCULAR HEMOGLOBIN 29.6 pg (28-32); MEAN CORPUSCULAR HGB CONC 32.7 g/dL (31-35); MEAN CORPUSCULAR VOLUME 90.4 fL (81-99); MONOCYTES # (AUTO) 0.7 (0.2-0.8); MONOCYTES % 7.4 % (4.4-11.3); NEUTROPHILS # (AUTO) 6.8 (2.1-6.9); NEUTROPHILS % 70.8 % (38.7-80.0); PLATELET COUNT 345 x10e3/uL (140-360); RED BLOOD COUNT 3.01 x10e6/uL (3.6-5.1); RED CELL DISTRIBUTION WIDTH 13.2 % (11.7-14.4)
--- NOTE | 2019-09-25 07:00 | NUR ---
received bedside report. pt is alert resting in bed, no s/s of distress. call light within reach and instructed pt to call RN for help
--- NOTE | 2019-09-25 07:02 | NUR ---
Bedside report given to day nurse. Patient awake and resting in bed, no s/s of distress at this time. Bed locked and in low position, call light placed within reach.
[2019-09-25 07:11] LABS: ALANINE AMINOTRANSFERASE 9 IU/L (0-55); ALBUMIN 2.4 g/dL (3.5-5.0); ALBUMIN/GLOBULIN RATIO 0.9 (0.8-2.0); ALKALINE PHOSPHATASE 35 IU/L (40-150); ANION GAP 8.4 mmol/L (8-16); CALCIUM 8.3 mg/dL (8.4-10.2); CARBON DIOXIDE 32 mmol/L (22-29); CHLORIDE 102 mmol/L (98-107); CREATININE, SERUM 0.57 mg/dL (0.57-1.11); EST GLOMERULAR FILTRATION RATE > 60 ML/MIN (60-); GLUCOSE 83 mg/dL (74-118); MAGNESIUM 1.3 MG/DL (1.3-2.1); SODIUM 140 mmol/L (136-145)
[2019-09-25 07:12] LABS: BLOOD UREA NITROGEN < 2 mg/dL (7-26); BUN/CREATININE RATIO 4 (6-25)
[2019-09-25 07:17] LABS: POTASSIUM 2.4 mmol/L (3.5-5.1)
--- NOTE | 2019-09-25 07:19 | NUR ---
received critical lab results, notified Dr. Huynh and received new orders
[2019-09-25] MEDS ORDERED: POTASSIUM CHLORIDE 20 MEQ TAB CR PO ONE (08:05)
[2019-09-25] MEDS: MONTELUKAST SODIUM 10 MG TAB PO SCH (08:29)
[2019-09-25] MEDS: PANTOPRAZOLE SOD 40 MG TABEC PO SCH ×3 (08:29→20:02)
[2019-09-25] MEDS: SUCRALFATE 1 GM/10 ML SUSP PO SCH ×4 (08:31→20:02)
[2019-09-25 15:08] LABS: ANION GAP 10.9 mmol/L (8-16); BLOOD UREA NITROGEN < 5 mg/dL (7-26); CALCIUM 8.9 mg/dL (8.4-10.2); CARBON DIOXIDE 32 mmol/L (22-29); CHLORIDE 101 mmol/L (98-107); CREATININE, SERUM 0.57 mg/dL (0.57-1.11); EST GLOMERULAR FILTRATION RATE > 60 ML/MIN (60-); GLUCOSE 104 mg/dL (74-118); SODIUM 141 mmol/L (136-145)
[2019-09-25 15:10] LABS: BUN/CREATININE RATIO 9 (6-25)
[2019-09-25 15:11] LABS: POTASSIUM 2.9 mmol/L (3.5-5.1)
[2019-09-25] MEDS ORDERED: POTASSIUM CHLORIDE 20 MEQ TAB CR PO SCH (15:30)
--- NOTE | 2019-09-25 19:13 | NUR ---
Received bedside from day nurse. Patient awake and resting in bed, no s/s of distress at this time. Bed locked and in low position, call light placed within reach. All safety measures in place. Will continue to monitor.
--- NOTE | 2019-09-25 20:33 | NUR ---
Paged Dr. Huynh and left a message notifying him that patient is running a temp of 100.3. Awaiting return call and orders at this time. Will provide ice pack and continue to monitor.
--- NOTE | 2019-09-25 20:43 | NUR ---
Received orders from Dr. Huynh for Tylenol 650 mg Q6 PRN PO.
[2019-09-25] MEDS ORDERED: ACETAMINOPHEN 325 MG TAB PO PRN (20:45)
[2019-09-26] VITALS (8 sets, daily range): BP systolic 110–132; BP diastolic 6–68
[2019-09-26] MEDS: METRONIDAZOLE 500MG/NS 100ML 100 ML IV SCH ×5 (00:07→23:46)
[2019-09-26] MEDS: ONDANSETRON HCL INJ 2MG/ML 2ML 2 MG/ML VIAL IV PRN ×2 (01:03→06:28)
[2019-09-26] MEDS: HYDROMORPHONE 1MG/1ML INJ IV PRN ×6 (01:03→23:40)
[2019-09-26] MEDS: PIPER-TAZ 3.375 GM 50 ML IV SCH ×4 (02:40→19:45)
[2019-09-26] MEDS: SODIUM CHLORIDE 0.9% 1000ML 1,000 ML IV SCH ×4 (02:40→21:42)
[2019-09-26 05:54] LABS: BLOOD UREA NITROGEN < 5 mg/dL (7-26); CALCIUM 8.1 mg/dL (8.4-10.2); CARBON DIOXIDE 30 mmol/L (22-29); CHLORIDE 105 mmol/L (98-107); CREATININE, SERUM 0.54 mg/dL (0.57-1.11); EST GLOMERULAR FILTRATION RATE > 60 ML/MIN (60-); GLUCOSE 88 mg/dL (74-118); SODIUM 140 mmol/L (136-145)
[2019-09-26 06:18] LABS: BUN/CREATININE RATIO 9 (6-25)
--- NOTE | 2019-09-26 06:48 | NUR ---
Informed Dr. Huynh of patient's potassium level of 3.0. Received orders to give 40 mEq potassium PO now and again in 6 hours.
[2019-09-26] MEDS ORDERED: POTASSIUM CHLORIDE 20 MEQ TAB CR PO ONE ×3 (06:58→21:00)
--- NOTE | 2019-09-26 07:05 | NUR ---
Bedside report given to day nurse. Patient awake and resting in bed, no s/s of distress at this time. All safety measures in place.
[2019-09-26] MEDS: SUCRALFATE 1 GM/10 ML SUSP PO SCH ×4 (08:18→20:35)
[2019-09-26] MEDS: PANTOPRAZOLE SOD 40 MG TABEC PO SCH ×3 (08:18→20:35)
[2019-09-26] MEDS: MONTELUKAST SODIUM 10 MG TAB PO SCH (08:18)
[2019-09-26] MEDS ORDERED: PHENAZOPYRIDINE HCL 100 MG TAB PO ONE (10:55)
[2019-09-26] MEDS: HYDROCODONE/APAP 10MG-325MG TAB PO PRN ×3 (11:44→21:42)
[2019-09-26] MEDS ORDERED: POTASSIUM CHLORIDE 20 MEQ TAB CR PO NR (17:00)
--- NOTE | 2019-09-26 19:00 | NUR ---
Patient visited in room during nursing rounds. Patient alert and oriented x3. No distress noted. S/P Laparoscopic sigmoid colon resection, Appendectomy, and Cystoscopy with bilateral urinary stent placement on 09/21/19. Midline abd incision covered with bordered gauze and small incision on RLQ abd covered with band aid all clean and dry. On IVF (NS at 125ml/hr) and scheduled IV antibiotic treatment. Call rodriguez within reach. Will monitor pt closely.
--- NOTE | 2019-09-26 20:37 | Operative Report ---
DATE OF PROCEDURE: 09/21/2019 SURGEON: Chito Ortiz MD PREOPERATIVE DIAGNOSES: 1. Urinary tract infections. 2. Microhematuria. POSTOPERATIVE DIAGNOSES: 1. Urinary tract infections. 2. Microhematuria. 3. Mixed-type urinary incontinence. 4. Grade 1 cystocele. 5. Atrophic (senile) vaginitis. OPERATION PERFORMED: 1. Cystourethroscopy with bilateral ureteral catheterization and retrograde ureteropyelography. 2. Interpretation of retrograde ureteropyelography. 3. Supervision of fluoroscopy, no radiologist present. 4. Pelvic examination under anesthesia. ANESTHESIA: General. COMPLICATIONS: None. CLINICAL SUMMARY: Syeda Delgado is a 64-year-old woman with the above preoperative diagnoses. She is brought for bilateral ureteral stent placement for general surgical colonic procedure. She is aware of the risks of bleeding, infection, injury to adjacent structures, need for additional procedures and elected to proceed. OPERATIVE PROCEDURE IN DETAIL: Informed consent was verified. Syeda Delgado was properly identified, taken to the operating room, placed on the cystoscopy table in supine position. Anesthesia was uneventfully begun. The patient was then carefully gently repositioned in dorsal lithotomy position. All pressure points were padded. Her genitalia were prepared and draped in usual sterile fashion. The cystoscope sheath with obturator in place was atraumatically inserted into the patient's urethra and bladder was drained. Panendoscopy of the bladder revealed no suspicious mucosal lesions, no tumors, no stones, and no diverticula. Normally positioned and configured. Ureteral orifices were identified. A 5-Latvian open-ended ureteral catheters were placed into both ureteral orifices. The cystoscope was withdrawn. Aguilar catheter was in place. Contrast was injected through both ureteral catheters. Ureteral catheter was then incorporated into the drainage system. Interpretation of retrograde ureteropyelography contrast was instilled in retrograde fashion bilaterally. There were no tumors, no stones, no diverticula. Unobstructed drainage was observed bilaterally fluoroscopically. Air bubbles were introduced by the ureteral catheters and these were noted to drain out. Pelvic examination under anesthesia revealed grade 1 cystocele with atrophic vaginitis. No abnormal palpable pelvic masses could be appreciated. There were no obvious mucosal lesions. The patient was then uneventfully transported to the open operating room so that the General Surgery service may complete their procedure. Chito MD DARI Ortiz/LIZET /[id number]
[2019-09-27] VITALS (8 sets, daily range): BP systolic 106–139; BP diastolic 56–78
[2019-09-27] MEDS: HYDROMORPHONE 1MG/1ML INJ IV PRN ×6 (01:48→22:21)
[2019-09-27] MEDS: PIPER-TAZ 3.375 GM 50 ML IV SCH ×4 (01:54→20:18)
[2019-09-27] MEDS: METRONIDAZOLE 500MG/NS 100ML 100 ML IV SCH ×3 (06:00→16:50)
[2019-09-27] MEDS: SODIUM CHLORIDE 0.9% 1000ML 1,000 ML IV SCH (06:00)
[2019-09-27] MEDS: HYDROCODONE/APAP 7.5MG-325MG 1 EA TAB PO PRN ×3 (06:00→20:18)
--- NOTE | 2019-09-27 07:20 | NUR ---
Rcvd patient in report this am. Patient is asleep in bed at this time. NO s/s of distress noted
[2019-09-27] MEDS ORDERED: SODIUM CHLORIDE FLUSH 10 ML SYR INJ PRN (07:45)
[2019-09-27] MEDS: MONTELUKAST SODIUM 10 MG TAB PO SCH (08:48)
[2019-09-27] MEDS: PANTOPRAZOLE SOD 40 MG TABEC PO SCH ×3 (08:48→20:18)
[2019-09-27] MEDS: SUCRALFATE 1 GM/10 ML SUSP PO SCH ×4 (08:48→20:18)
[2019-09-27] MEDS: HYDROCODONE/APAP 10MG-325MG TAB PO PRN (10:38)
[2019-09-27] MEDS: ONDANSETRON HCL INJ 2MG/ML 2ML 2 MG/ML VIAL IV PRN ×2 (14:06→22:21)
[2019-09-27] MEDS: ACETAMINOPHEN/ASPIRIN/CAFFEINE 1 EA TAB PO PRN (16:50)
--- NOTE | 2019-09-27 19:00 | NUR ---
Patient visited in room during nursing rounds. Patient alert and oriented x3. No distress noted. S/P Laparoscopic sigmoid colon resection, Appendectomy, and Cystoscopy with bilateral urinary stent placement on 09/21/19. Midline abd incision covered with bordered gauze and small incision on RLQ abd covered with band aid all clean and dry. Right hand appear swollen and current IV (right wrist) appear infiltrated. Will start new IV tonight. On scheduled IV antibiotic treatment. Call rodriguez within reach. Will monitor pt closely.
[2019-09-28] MEDS: METRONIDAZOLE 500MG/NS 100ML 100 ML IV SCH ×2 (00:16→05:24)
[2019-09-28] MEDS: HYDROCODONE/APAP 7.5MG-325MG 1 EA TAB PO PRN ×2 (00:19→05:20)
[2019-09-28 00:27] VITALS: BP 108/56
[2019-09-28] MEDS: ACETAMINOPHEN/ASPIRIN/CAFFEINE 1 EA TAB PO PRN (00:44)
[2019-09-28] MEDS: PIPER-TAZ 3.375 GM 50 ML IV SCH ×2 (02:00→08:24)
[2019-09-28] MEDS: HYDROMORPHONE 1MG/1ML INJ IV PRN ×2 (02:30→08:24)
[2019-09-28 04:32] VITALS: BP 113/55
[2019-09-28 06:34] LABS: BASOPHILS % 0.4 % (0.0-1.0); EOSINOPHILS # (AUTO) 0.9 (0.0-0.4); EOSINOPHILS % 8.3 % (0.0-6.0); HEMATOCRIT 32.1 % (34.2-44.1); HEMOGLOBIN 10.4 g/dL (12.0-16.0); LYMPHOCYTES # (AUTO) 1.7 (1.0-3.2); LYMPHOCYTES % 16.4 % (18.0-39.1); MEAN CORPUSCULAR HEMOGLOBIN 29.7 pg (28-32); MEAN CORPUSCULAR HGB CONC 32.4 g/dL (31-35); MEAN CORPUSCULAR VOLUME 91.7 fL (81-99); MONOCYTES % 9.2 % (4.4-11.3); NEUTROPHILS # (AUTO) 6.7 (2.1-6.9); NEUTROPHILS % 65.1 % (38.7-80.0); PLATELET COUNT 549 x10e3/uL (140-360); RED CELL DISTRIBUTION WIDTH 13.9 % (11.7-14.4)
[2019-09-28 07:09] LABS: ALANINE AMINOTRANSFERASE 7 IU/L (0-55); ALBUMIN 2.5 g/dL (3.5-5.0); ALBUMIN/GLOBULIN RATIO 0.8 (0.8-2.0); ALKALINE PHOSPHATASE 49 IU/L (40-150); ANION GAP 11.5 mmol/L (8-16); BLOOD UREA NITROGEN < 5 mg/dL (7-26); BUN/CREATININE RATIO 8 (6-25); CALCIUM 8.8 mg/dL (8.4-10.2); CARBON DIOXIDE 28 mmol/L (22-29); CHLORIDE 102 mmol/L (98-107); EST GLOMERULAR FILTRATION RATE > 60 ML/MIN (60-); GLUCOSE 85 mg/dL (74-118); MAGNESIUM 1.5 MG/DL (1.3-2.1); POTASSIUM 3.5 mmol/L (3.5-5.1); SODIUM 138 mmol/L (136-145)
[2019-09-28] MEDS ORDERED: LEVAQUIN500 MG PO (07:42)
[2019-09-28 08:03] VITALS: BP 159/54
[2019-09-28] MEDS: SUCRALFATE 1 GM/10 ML SUSP PO SCH (08:24)
[2019-09-28] MEDS: MONTELUKAST SODIUM 10 MG TAB PO SCH (08:24)
[2019-09-28] MEDS: PANTOPRAZOLE SOD 40 MG TABEC PO SCH (08:24)
[2019-09-28 08:25] VITALS: BP 159/54
[2019-09-28] MEDS: ONDANSETRON HCL INJ 2MG/ML 2ML 2 MG/ML VIAL IV PRN (08:35)
--- NOTE | 2019-10-20 09:10 | Discharge Summary ---
DISCHARGE DIAGNOSES: Diverticulitis with abscess, status post surgical resection, lupus, and anxiety disorder. HISTORY OF PRESENT ILLNESS AND HOSPITAL COURSE: The patient is a lady, well known to me with history of recurrent diverticulitis, who presented unfortunately with diverticulitis with abscess formation that did not respond to IV antibiotics, so Dr. Piper took her to the OR, removed section and was able to perform an end-to-end anastomosis. Postoperatively, she did very well. Once her pain was tolerable and she was passing gas and bowel movements, she was ambulating well, eating well. She was able to be transferred home in good condition with continuation of her home medications of p.o. antibiotics. She will follow up with me in 1 to 2 weeks as well as with Dr. Piper. Please see hospital chart for full details. MD DAO Webber/LIZET /[id number]
== END 2019-09-28 10:03 | disposition home or self-care (01) | DRG 330 ==
LOC: ER 14:39 → ERHOLD 21:06 → MED/SURG3 09-10 01:05 → MED/SURG 09-21 18:10
PROVIDERS: ADMIT Internal Medicine; ATTEND Internal Medicine
PROC: BT141ZZ Fluoroscopy of Kidneys, Ureters and Bladder using Low Osmolar Contrast (ICD-10-PCS; 2019-09-21)
PROC: 0DTN4ZZ Resection of Sigmoid Colon, Percutaneous Endoscopic Approach (ICD-10-PCS; principal; 2019-09-21 14:00)
PROC: 0T788ZZ Dilation of Bilateral Ureters, Via Natural or Artificial Opening Endoscopic (ICD-10-PCS; 2019-09-21 14:00)
DX: K57.20 Diverticulitis of large intestine with perforation and abscess without bleeding (principal); N39.0 Urinary tract infection, site not specified; E87.6 Hypokalemia; M32.9 Systemic lupus erythematosus, unspecified; F41.9 Anxiety disorder, unspecified; N39.46 Mixed incontinence; N95.2 Postmenopausal atrophic vaginitis; N81.10 Cystocele, unspecified; R31.29 Other microscopic hematuria
CPT/HCPCS: 36415; 74176; 74420; 80048; 80053; 81001; 82150; 83690; 83735; 84132; 85025; 85610; 87071; 87075; 87205; 87493; 88302; 88304; 88305; 88307; 96360; 96361; 99284; C1758; J1100; J1170; J1885; J1956; J2001; J2250; J2270; J2405; J2543; J2710; J3010; J3480; J7030

== ENCOUNTER 2019-11-05 20:39 | Emergency (ER) | payer SELFPAY ==
[~2019-11-05] VITALS: Ht 162.6 cm; Wt 51.7 kg
[~2019-11-05 20:39] MED LIST changes: +LEVAQUIN500 MG PO
[2019-11-05] MEDS ORDERED: DICYCLOMINE HCL 20 MG/2 ML VIAL IM ONE (21:15)
[2019-11-05 21:29] VITALS: BP 140/78
== END 2019-11-05 21:48 | disposition home or self-care (01) ==
LOC: ER 20:39
DX: R10.84 Generalized abdominal pain (principal); R19.7 Diarrhea, unspecified; M32.9 Systemic lupus erythematosus, unspecified; F41.9 Anxiety disorder, unspecified; K21.9 Gastro-esophageal reflux disease without esophagitis; Z98.0 Intestinal bypass and anastomosis status
CPT/HCPCS: 99283; J0500

== ENCOUNTER 2019-11-07 11:41 | Emergency (ER) | payer SELFPAY ==
[~2019-11-07] VITALS: Ht 162.6 cm; Wt 51.7 kg
[2019-11-07] MEDS ORDERED: SODIUM CHLORIDE 0.9% 1000ML 1,000 ML IV STA (11:57)
[2019-11-07] MEDS ORDERED: ONDANSETRON HCL INJ 2MG/ML 2ML 2 MG/ML VIAL IV ONE (11:57)
[2019-11-07] MEDS ORDERED: TETANUS/DIPHTHERIA TOX ADULT 0.5 ML SYR IM ONE (12:45)
--- NOTE | 2019-11-07 13:16 | Diagnostic Imaging Report ---
EXAMINATION: CHEST SINGLE (PORTABLE) INDICATION: Trauma COMPARISON: None FINDINGS: LINES/TUBES:None LUNGS:The lungs are well-inflated. No focal consolidation or pulmonary edema. PLEURA:No pleural effusion or pneumothorax. MEDIASTINUM:The cardiomediastinal silhouette appears normal in size and shape. BONES/SOFT TISSUES:No acute osseous injury. ABDOMEN:No free air under the diaphragm. IMPRESSION: No focal pneumonia or pulmonary edema. No radiograph evidence of acute traumatic injury to the thorax. Signed by: Sanaz Berumen MD on 11/07/2019 1:12 PM
--- NOTE | 2019-11-07 13:17 | Diagnostic Imaging Report ---
EXAMINATION: PELVIS AP 1-2 VIEWS INDICATION: Fall COMPARISON: None FINDINGS: No acute fracture or dislocation. Alignment is anatomic. No substantial degenerative change. Phleboliths in the right pelvis. IMPRESSION: No acute osseous injury. Signed by: Sanaz Berumen MD on 11/07/2019 1:13 PM
--- NOTE | 2019-11-07 13:28 | NUR ---
PER LAB PRODUCT ENGINEER SAULO MABRY PATIENT STATED TO HER THAT HER HAD HIT HER ON THE HEAD.
--- NOTE | 2019-11-07 13:47 | Diagnostic Imaging Report ---
EXAMINATION: Head and face CT without contrast. HISTORY: Status post fall the night before, trauma, head and face pain COMPARISON: None available TECHNIQUE: Multidetector axial images were obtained without contrast from the foramen magnum to the vertex and over the face. The images were reformatted into coronal and sagittal planes. Dose modulation, iterative reconstruction, and/or weight based adjustment of the mA/kV was utilized to reduce the radiation dose to as low as reasonably achievable. Head CT findings: Skull: -No significantly displaced left squamosal temporal bone fracture. Mildly displaced left sphenoid fracture involving the greater wing of the sphenoid and the anterior aspect of the left middle cranial fossa skull base, the fracture line is extending along the left inferior margin of the left superior orbital fissure. -Left fronto-orbital mildly displaced fracture extending to the anterior orbital roof. An additional mildly displaced left posterior orbital roof fracture is partially extending to the orbital apex. Parenchyma: Small acute posttraumatic hemorrhagic contusions in the left medial and lateral orbital frontal gyri, left temporal pole. No mass or CT evidence of acute vascular insult. Brain volume: Normal for age. Ventricles: No hydrocephalus or displacement. Arteries: No density suggestive of thrombus. Dural sinuses: No abnormal density. Extra-axial spaces: Acute post traumatic subarachnoid hemorrhage in the anterior/inferior frontal sulci as well as throughout the left inferior lateral temporal sulci and posterior sylvian fissure/inferior parietal sulci. Possible tiny left anterior temporal epidural hematoma without mass effect at this time. Foramen magnum: No mass, Chiari malformation, or basilar invagination. Sella: No obvious mass. Paranasal/mastoid sinuses: Imaged portions unremarkable. Face CT findings: Bones: Incomplete acute comminuted and displaced left zygomaticomaxillary complex fracture involving the left zygomatic arch and zygomaticomaxillary suture, the the anterior and left posterior lateral kaplan of the left maxillary sinus. Not significantly displaced left lateral orbital rim fracture. Left orbit fractures: Acute comminuted and mildly displaced fractures along the left superior/anterior orbital roof extending to the superior orbital rim with tiny bone fragment migrated within the left superior extraconal space. There is also a mildly displaced left posterior orbital roof fracture partially extending to the orbital apex, with fullness at this level. Acute comminuted and displaced left orbital floor fracture, there is no involvement or impingement of the inferior rectus muscle. Facial soft tissues: Prominent left orbital preseptal soft tissue swelling/hematoma. Left temporal skin laceration. Left premaxillary and premandibular soft tissue swelling. Orbits contents: Swelling of the left superior and lateral muscles muscle and small left superior extraconal 3 mm thickness hemorrhage, associated stretching of the optic nerve and proptosis. Paranasal sinuses and drainage pathways: Hemorrhagic opacification of the left maxillary sinus. Nasal septum and nasal cavities: Chronic right anterior and left posterior nasal septal deviation Anatomic variations: No significant anatomic variations. Teeth: No acute abnormality of the visualized teeth. IMPRESSION: Head CT: 1. Acute posttraumatic subarachnoid hemorrhage in the left frontotemporal sulci. 2. Small left frontal and temporal lobe hemorrhagic contusions. 3. Multiple acute comminuted and mildly displaced left anterior and middle cranial fossa skull base fractures as dictated above. Neurosurgery consult is advised. Face CT: 1. Multiple acute comminuted and displaced left orbitofacial fractures to include an incomplete left zygomaticomaxillary complex fracture. Maxillofacial consult is advised. 2. Prominent fractures through the left orbital roof and floor, associated fullness of the orbital apex, stretching of the optic nerve and proptosis. Ophthalmology consult is advised. 3. Hemorrhagic opacification of the left maxillary sinus. 4. Left periorbital and premaxillary soft tissue hematoma and laceration as described. The findings were discussed with the ER physician Jacob Cruz on 11/07/2019 at 1:15 PM Signed by: Dr. Leann Emerson M.D. on 11/07/2019 1:44 PM
--- NOTE | 2019-11-07 13:50 | NUR ---
CALLED TO CHECK ON .
--- NOTE | 2019-11-07 13:51 | Diagnostic Imaging Report ---
EXAMINATION: CT of the cervical spine HISTORY: Status post fall last night, trauma, pain COMPARISON: None available TECHNIQUE: Multidetector helical axial images were obtained without contrast from the foramen magnum to T1. The images were reconstructed using bone and soft tissue algorithms and were viewed in axial, sagittal and coronal planes. Dose modulation, iterative reconstruction, and/or weight based adjustment of the mA/kV was utilized to reduce the radiation dose to as low as reasonably achievable. FINDINGS: Alignment: Normal alignment and lordosis Soft tissues: Normal Vertebrae: Normal height and density. No acute fracture, infection or neoplasm Degenerative changes: C1-C2: Normal C2-C3: Facet arthrosis mainly on the left. No stenoses. C3-C4: Mild bilateral uncovertebral and facet arthrosis mainly on the left. No canal or foraminal stenosis. C4-C5: Mild facet arthrosis without stenosis. C5-C6: Asymmetric left disc osteophyte complex formation, uncovertebral and facet arthrosis. Moderately severe left foraminal stenosis. C6-C7: Asymmetric right disc osteophyte complex formation, uncovertebral and facet arthrosis. Moderate right foraminal stenoses. C7-T1: Facet arthrosis on the right without stenosis. IMPRESSION: 1. No acute cervical spine postraumatic abnormalities. 2. Mild chronic degenerative changes as described. Note: Acute postraumatic spinal cord, vascular or ligamentous injuries cannot adequately be assessed by CT. Signed by: Dr. Leann Emerson M.D. on 11/07/2019 1:48 PM
--- NOTE | 2019-11-07 13:54 | NUR ---
[place] patient [place]
--- NOTE | 2019-11-07 14:12 | NUR ---
report called to [facility] --[phone]
[2019-11-07] MEDS ORDERED: CEFAZOLIN SOD 1 GM/NS 50ML 50 ML IV ONE (14:15)
[2019-11-07 14:18] LABS: ALANINE AMINOTRANSFERASE 11 IU/L (0-55); ALBUMIN 3.8 g/dL (3.5-5.0); ALBUMIN/GLOBULIN RATIO 1.1 (0.8-2.0); ALKALINE PHOSPHATASE 59 IU/L (40-150); ANION GAP 18.9 mmol/L (8-16); BLOOD UREA NITROGEN 10 mg/dL (7-26); BUN/CREATININE RATIO 12 (6-25); CALCIUM 9.9 mg/dL (8.4-10.2); CARBON DIOXIDE 21 mmol/L (22-29); CHLORIDE 100 mmol/L (98-107); CREATINE KINASE 61 IU/L (29-168); CREATININE, SERUM 0.84 mg/dL (0.57-1.11); EST GLOMERULAR FILTRATION RATE > 60 ML/MIN (60-); GLUCOSE 101 mg/dL (74-118); MAGNESIUM 1.7 MG/DL (1.3-2.1); POTASSIUM 3.9 mmol/L (3.5-5.1); SODIUM 136 mmol/L (136-145)
[2019-11-07 14:21] LABS: INR 0.87; PROTHROMBIN TIME 12.3 seconds (11.9-14.5)
[2019-11-07 14:23] LABS: PARTIAL THROMBOPLASTIN TIME 21.7 seconds (23.8-35.5)
[2019-11-07] MEDS ORDERED: VANCOMYCIN 1GM/NS 250 ML 250 ML IV ONE (14:45)
--- NOTE | 2019-11-07 14:47 | NUR ---
ENGINEER ASSISTANT HERE TO SPEAK WITH PATIENT CONCERNING INJURIES.
--- NOTE | 2019-11-07 14:50 | NUR ---
CALLED TO ED FOR PT, POLICE REPORT TAKEN; CASE #[id number]. PT TO BE TRANSFERRING TO [facility], CALLING BOYFRIEND TO COME TO ED TO INTERVIEW ABOUT INJURIES. OFFICER CHRIS WILL SPEAK WITH HIM ABOUT INJURIES.
--- NOTE | 2019-11-07 15:48 | NUR ---
[facility] HERE TO TX PATIENT
[2019-11-07 15:59] LABS: BASOPHILS % 0.1 % (0.0-1.0); EOSINOPHILS % 0.1 % (0.0-6.0); HEMATOCRIT 38.8 % (34.2-44.1); HEMOGLOBIN 12.3 g/dL (12.0-16.0); LYMPHOCYTES % 6.5 % (18.0-39.1); MEAN CORPUSCULAR HEMOGLOBIN 28.1 pg (28-32); MEAN CORPUSCULAR HGB CONC 31.7 g/dL (31-35); MEAN CORPUSCULAR VOLUME 88.8 fL (81-99); MONOCYTES # (AUTO) 0.8 (0.2-0.8); MONOCYTES % 5.3 % (4.4-11.3); NEUTROPHILS # (AUTO) 13.7 (2.1-6.9); NEUTROPHILS % 87.6 % (38.7-80.0); PLATELET COUNT 480 x10e3/uL (140-360); RED BLOOD COUNT 4.37 x10e6/uL (3.6-5.1)
== END 2019-11-07 16:01 | disposition other institution (70) ==
LOC: ER 11:44
DX: S06.6X0A Traumatic subarachnoid hemorrhage without loss of consciousness, initial encounter (principal); S02.82XA Fracture of other specified skull and facial bones, left side, initial encounter for closed fracture; S02.122A Fracture of orbital roof, left side, initial encounter for closed fracture; S02.32XA Fracture of orbital floor, left side, initial encounter for closed fracture; S02.2XXB Fracture of nasal bones, initial encounter for open fracture; W01.0XXA Fall on same level from slipping, tripping and stumbling without subsequent striking against object, initial encounter; Y92.008 Other place in unspecified non-institutional (private) residence as the place of occurrence of the external cause
CPT/HCPCS: 36415; 70450; 70486; 71045; 72125; 72170; 80053; 80320; 80329; 82550; 82553; 83605; 83735; 84484; 85025; 85610; 85730; 87040; 90471; 90714; 93005; 99284; J0690; J2405; J3370; J7030

== ENCOUNTER 2021-05-20 20:47 | Emergency (ER) | payer MEDICARE, OTHER ==
[~2021-05-20] VITALS: Ht 162.6 cm; Wt 51.7 kg
[2021-05-20] MEDS ORDERED: DIATRIZOATE MEGL/DIATRIZOA SOD 30 ML BTL PO ONE (21:23)
[2021-05-20 21:36] LABS: BASOPHILS # (AUTO) 0.1 (0.0-0.1); BASOPHILS % 0.7 % (0.0-1.0); EOSINOPHILS # (AUTO) 0.1 (0.0-0.4); EOSINOPHILS % 1.3 % (0.0-6.0); HEMATOCRIT 37.7 % (34.2-44.1); HEMOGLOBIN 11.9 g/dL (12.0-16.0); LYMPHOCYTES # (AUTO) 2.6 (1.0-3.2); LYMPHOCYTES % 24.3 % (18.0-39.1); MEAN CORPUSCULAR HEMOGLOBIN 29.3 pg (28-32); MEAN CORPUSCULAR HGB CONC 31.6 g/dL (31-35); MEAN CORPUSCULAR VOLUME 92.9 fL (81-99); MONOCYTES # (AUTO) 0.7 (0.2-0.8); MONOCYTES % 6.9 % (4.4-11.3); NEUTROPHILS # (AUTO) 7.1 (2.1-6.9); NEUTROPHILS % 66.1 % (38.7-80.0); PLATELET COUNT 468 x10e3/uL (140-360); RED BLOOD COUNT 4.06 x10e6/uL (3.6-5.1); RED CELL DISTRIBUTION WIDTH 13.3 % (11.7-14.4)
[2021-05-20 21:57] LABS: ALBUMIN 3.4 g/dL (3.5-5.0); ALBUMIN/GLOBULIN RATIO 0.9 (0.8-2.0); ANION GAP 18.2 mmol/L (8-16); CALCIUM 9.5 mg/dL (8.4-10.2); CREATININE, SERUM 0.91 mg/dL (0.57-1.11); POTASSIUM 4.2 mmol/L (3.5-5.1)
[2021-05-20] MEDS ORDERED: ONDANSETRON HCL INJ 2MG/ML 2ML 2 MG/ML VIAL IV STA ×2 (22:38→23:31)
[2021-05-20] MEDS ORDERED: Morphine 4mg Syringe 4 MG/ML INJ IV STA (22:38)
[2021-05-20 22:51] LABS: CLARITY,URINE CLEAR (CLEAR); COLOR,URINE YELLOW (YELLOW); KETONES,URINE NEGATIVE (NEGATIVE); LEUKOCYTE ESTERASE ,URINE NEGATIVE (NEGATIVE); NITRITE,URINE NEGATIVE (NEGATIVE); PROTEIN,URINE DIPSTICK NEGATIVE (NEGATIVE); URINE UROBILINOGEN 0.2 mg/dL (0.2 - 1)
[2021-05-20 22:57] LABS: BACTERIA,URINE FEW /HPF; EPITHELIAL CELLS,URINE FEW /LPF; RBC,URINE 0-5 /HPF (0-5); WBC,URINE (MAN) 0-5 /HPF (0-5)
[2021-05-20] MEDS ORDERED: ACETAMINOPHEN 325 MG TAB PO ONE (23:00)
[2021-05-20] MEDS ORDERED: KETOROLAC TROMETHAMINE 30 MG/ML VIAL IV STA (23:13)
[2021-05-20] MEDS ORDERED: HYDROMORPHONE 1MG/1ML INJ IV STA (23:31)
[2021-05-20] MEDS ORDERED: VICODIN HP 10-1 EAC1 PO (23:46)
[2021-05-21] MEDS ORDERED: BACITRACIN ZINC 0.9GM TP ONE ×2 (00:41→00:45)
[2021-05-21 00:57] VITALS: BP 126/63
[2021-05-21] MEDS ORDERED: HYDROCODON-ACE1 EAC9 PO (18:13)
== END 2021-05-21 01:16 | disposition home or self-care (01) ==
LOC: ER 20:58
DX: R10.12 Left upper quadrant pain (principal); F41.9 Anxiety disorder, unspecified; K21.9 Gastro-esophageal reflux disease without esophagitis; M32.9 Systemic lupus erythematosus, unspecified; Z96.653 Presence of artificial knee joint, bilateral; Z98.0 Intestinal bypass and anastomosis status
CPT/HCPCS: 36415; 70450; 74176; 80053; 81001; 83690; 85025; 99284; J1170; J1885; J2405

== ENCOUNTER → 2022-09-29 | Outpatient (CLI) | payer MEDICARE ==
[~2022-09-29] MED LIST changes: +HYDROCODON-ACE1 EAC9 PO; +VICODIN HP 10-1 EAC1 PO
[2022-09-29 14:20] LABS: CREATININE, SERUM 0.85 mg/dL (0.57-1.11)
== END ==
LOC: CT 13:24
PROVIDERS: ATTEND Internal Medicine
DX: R10.0 Acute abdomen (principal)
CPT/HCPCS: 36415; 74177; 82565; 84520

== ENCOUNTER → 2023-01-07 | Outpatient (CLI) | payer MEDICARE | LOC: MRI 12:08 | PROVIDERS: ATTEND Internal Medicine | DX: M54.41 Lumbago with sciatica, right side (principal); M16.0 Bilateral primary osteoarthritis of hip | CPT/HCPCS: 72148; 73522 ==

== ENCOUNTER → 2023-05-06 | Day surgery (SDC) | payer MEDICARE ==
[~2023-05-06] MED LIST changes: +BOTULINUM TOXIN TYPE A 100 UNIT VIAL IM ONE; +CEFEPIME HCL 1 GM VIAL ONE; +CEFUROXIME500 MG PO; +DEXAMETHASONE SOD PHOS INJ 4 MG/ML SDV ONE; +FENTANYL CITRATE/PF 100MCG/2 ML INJ ONE; +GENTAMICIN 80MG/NS 100 ML 200 ML IV ONE; +IOPAMIDOL 610MG/1ML 300 MG/ML VIAL IV ONE; +LACTATED RINGER'S 1,000 ML ONE; +LIDOCAINE HCL 2% LOCAL INJ 5 ML SDV VIAL INJ ONE; +ONDANSETRON HCL INJ 2MG/ML 2ML 2 MG/ML VIAL ONE; +PHENAZOPYRIDINE HCL 100 MG TAB ONE; +PROPOFOL IV EMULSION 10 MG/ML 20 ML VIAL ONE; +SEVOFLURANE INHAL SOLN 250 ML PEN BTL ONE
[2023-05-06 09:02] LABS: BASOPHILS # (AUTO) 0.1 (0.0-0.1); BASOPHILS % 0.6 % (0.0-1.0); EOSINOPHILS # (AUTO) 0.5 (0.0-0.4); EOSINOPHILS % 4.8 % (0.0-6.0); HEMATOCRIT 38.3 % (34.2-44.1); HEMOGLOBIN 12.6 g/dL (12.0-16.0); LYMPHOCYTES # (AUTO) 2.6 (1.0-3.2); LYMPHOCYTES % 26.5 % (18.0-39.1); MEAN CORPUSCULAR HEMOGLOBIN 30.1 pg (28-32); MEAN CORPUSCULAR HGB CONC 32.9 g/dL (31-35); MEAN CORPUSCULAR VOLUME 91.4 fL (81-99); MONOCYTES # (AUTO) 0.8 (0.2-0.8); NEUTROPHILS # (AUTO) 5.8 (2.1-6.9); NEUTROPHILS % 59.5 % (38.7-80.0); PLATELET COUNT 418 x10e3/uL (140-360); RED BLOOD COUNT 4.19 x10e6/uL (3.6-5.1); RED CELL DISTRIBUTION WIDTH 13.9 % (11.7-14.4); WHITE BLOOD COUNT 9.81 x10e3/uL (4.8-10.8)
[2023-05-06 09:19] LABS: ANION GAP 15.3 mmol/L (8-16); CALCIUM 9.8 mg/dL (8.4-10.2); CREATININE, SERUM 0.87 mg/dL (0.57-1.11); POTASSIUM 4.3 mmol/L (3.5-5.1)
[2023-05-06 13:25] VITALS: BP 130/77; PULSE 80; RESP 16; O2SAT 96
== END | disposition home or self-care (01) ==
LOC: OR 08:33
PROVIDERS: ATTEND Urology
DX: N39.41 Urge incontinence (principal); N39.0 Urinary tract infection, site not specified; N81.10 Cystocele, unspecified; N81.6 Rectocele; N36.2 Urethral caruncle; N95.2 Postmenopausal atrophic vaginitis; N32.89 Other specified disorders of bladder; G47.00 Insomnia, unspecified; G89.29 Other chronic pain; F41.9 Anxiety disorder, unspecified; K21.9 Gastro-esophageal reflux disease without esophagitis; Z88.6 Allergy status to analgesic agent; Z88.2 Allergy status to sulfonamides; Z01.810 Encounter for preprocedural cardiovascular examination; Z79.899 Other long term (current) drug therapy
CPT/HCPCS: 36415; 52005; 52287; 71046; 74420; 80048; 85025; 87086; 93005; C1758; J0587; J0692; J1100; J1580; J2001; J2405; J2704; J3010; J7121; Q9967

== ENCOUNTER 2023-11-07 11:01 | Inpatient (IN) | payer MEDICARE ==
[~2023-11-07] VITALS: Ht 162.6 cm; Wt 68.0 kg
[~2023-11-07 11:01] MED LIST changes: -BOTULINUM TOXIN TYPE A 100 UNIT VIAL IM ONE; -CEFEPIME HCL 1 GM VIAL ONE; -DEXAMETHASONE SOD PHOS INJ 4 MG/ML SDV ONE; -FENTANYL CITRATE/PF 100MCG/2 ML INJ ONE; -GENTAMICIN 80MG/NS 100 ML 200 ML IV ONE; -IOPAMIDOL 610MG/1ML 300 MG/ML VIAL IV ONE; -LACTATED RINGER'S 1,000 ML ONE; -LIDOCAINE HCL 2% LOCAL INJ 5 ML SDV VIAL INJ ONE; -ONDANSETRON HCL INJ 2MG/ML 2ML 2 MG/ML VIAL ONE; -PHENAZOPYRIDINE HCL 100 MG TAB ONE; -PROPOFOL IV EMULSION 10 MG/ML 20 ML VIAL ONE; -SEVOFLURANE INHAL SOLN 250 ML PEN BTL ONE
[2023-11-07 11:51] LABS: BASOPHILS # (AUTO) 0.1 (0.0-0.1); BASOPHILS % 0.7 % (0.0-1.0); EOSINOPHILS # (AUTO) 0.9 (0.0-0.4); EOSINOPHILS % 8.3 % (0.0-6.0); HEMATOCRIT 41.9 % (34.2-44.1); HEMOGLOBIN 13.7 g/dL (12.0-16.0); LYMPHOCYTES # (AUTO) 2.1 (1.0-3.2); LYMPHOCYTES % 19.3 % (18.0-39.1); MEAN CORPUSCULAR HEMOGLOBIN 29.4 pg (28-32); MEAN CORPUSCULAR HGB CONC 32.7 g/dL (31-35); MEAN CORPUSCULAR VOLUME 89.9 fL (81-99); MONOCYTES # (AUTO) 0.9 (0.2-0.8); MONOCYTES % 8.5 % (4.4-11.3); NEUTROPHILS # (AUTO) 6.8 (2.1-6.9); NEUTROPHILS % 62.9 % (38.7-80.0); PLATELET COUNT 430 x10e3/uL (140-360); RED BLOOD COUNT 4.66 x10e6/uL (3.6-5.1); RED CELL DISTRIBUTION WIDTH 13.8 % (11.7-14.4); WHITE BLOOD COUNT 10.75 x10e3/uL (4.8-10.8)
[2023-11-07 11:55] LABS: INR 0.81; PROTHROMBIN TIME 11.8 seconds (11.9-14.5)
[2023-11-07 11:56] LABS: PARTIAL THROMBOPLASTIN TIME 18.7 seconds (23.8-35.5)
[2023-11-07] MEDS: SODIUM CHLORIDE 0.9% 1000ML 1,000 ML IV STA (12:07)
[2023-11-07] MEDS: ONDANSETRON HCL INJ 2MG/ML 2ML 2 MG/ML VIAL IV STA (12:07)
[2023-11-07] MEDS: DICYCLOMINE HCL 20 MG/2 ML VIAL IM ONE (12:07)
[2023-11-07 12:09] LABS: ALBUMIN 3.8 g/dL (3.5-5.0); ALBUMIN/GLOBULIN RATIO 0.9 (0.8-2.0); ANION GAP 15.6 mmol/L (8-16); BILIRUBIN,TOTAL 0.4 mg/dL (0.2-1.2); CALCIUM 9.8 mg/dL (8.4-10.2); CREATININE, SERUM 0.81 mg/dL (0.57-1.11); MAGNESIUM 2.1 MG/DL (1.3-2.1); POTASSIUM 4.6 mmol/L (3.5-5.1); TOTAL PROTEIN 7.9 g/dL (6.5-8.1)
[2023-11-07 12:16] LABS: TROPONIN I 0.008 ng/mL (0-0.300)
[2023-11-07] MEDS ORDERED: IOPAMIDOL 370 MG/ML 100 ML INFUS..BTL INJ ONE ×3 (12:30→14:53)
[2023-11-07 12:39] LABS: BILIRUBIN,URINE NEGATIVE (NEGATIVE); CLARITY,URINE CLOUDY (CLEAR); COLOR,URINE ORANGE (YELLOW); GLUCOSE, URINE 1+ (NEGATIVE); KETONES,URINE NEGATIVE (NEGATIVE); LEUKOCYTE ESTERASE ,URINE NEGATIVE (NEGATIVE); NITRITE,URINE POSITIVE (NEGATIVE); PH,URINE 5.5 (5 - 7); PROTEIN,URINE DIPSTICK NEGATIVE (NEGATIVE); URINE UROBILINOGEN 1 mg/dL (0.2 - 1)
[2023-11-07 12:53] LABS: BACTERIA,URINE MANY /HPF; EPITHELIAL CELLS,URINE FEW /LPF; RBC,URINE 0-5 /HPF (0-5)
[2023-11-07] MEDS: ONDANSETRON HCL INJ 2MG/ML 2ML 2 MG/ML VIAL IV PRN (15:29)
[2023-11-07] MEDS: HYDROMORPHONE 1MG/1ML INJ IV PRN (15:29)
[2023-11-07] MEDS: METRONIDAZOLE 500MG/NS 100ML 100 ML IV SCH (15:29)
[2023-11-07 16:53] VITALS: BP 137/63; PULSE 76; RESP 19; TEMP 98.4; O2SAT 94
[2023-11-07] MEDS ORDERED: OMEPRAZOLE40 MG PO (18:18)
[2023-11-07] MEDS ORDERED: LINZESS72 MCG PO (18:22)
[2023-11-07] MEDS ORDERED: MACROBID 100 M100 MG PO (18:22)
[2023-11-07] MEDS ORDERED: VITAMIN D250 MCG PO (18:22)
[2023-11-07] MEDS: SODIUM CHLORIDE 0.9% 1000ML 1,000 ML IV SCH (18:24)
[2023-11-07 20:20] VITALS: BP 128/70; PULSE 78; RESP 20; TEMP 96.7
[2023-11-07 21:00] VITALS: BP 128/70; PULSE 78; RESP 20; TEMP 96.7; O2SAT 95
[2023-11-07] MEDS ORDERED: PNEUMOCOCCAL VACCINE POLYVALENT 23 MCG/0.5 ML VIAL IM SCH (21:03)
[2023-11-08] VITALS: BP 121/49; PULSE 78; RESP 17; TEMP 97.9; O2SAT 94
[2023-11-08] MEDS ORDERED: ZOLPIDEM TARTRATE 10 MG TAB PO PRN (03:45)
[2023-11-08] MEDS ORDERED: CLONAZEPAM 0.5 MG TAB PO PRN (03:45)
[2023-11-08] MEDS ORDERED: ONDANSETRON HCL INJ 2MG/ML 2ML 2 MG/ML VIAL IV PRN (03:45)
[2023-11-08 05:58] LABS: BASOPHILS # (AUTO) 0.1 (0.0-0.1); BASOPHILS % 0.6 % (0.0-1.0); EOSINOPHILS # (AUTO) 0.9 (0.0-0.4); EOSINOPHILS % 9.8 % (0.0-6.0); HEMATOCRIT 32.5 % (34.2-44.1); HEMOGLOBIN 10.5 g/dL (12.0-16.0); LYMPHOCYTES # (AUTO) 1.5 (1.0-3.2); LYMPHOCYTES % 16.9 % (18.0-39.1); MEAN CORPUSCULAR HEMOGLOBIN 29.5 pg (28-32); MEAN CORPUSCULAR HGB CONC 32.3 g/dL (31-35); MEAN CORPUSCULAR VOLUME 91.3 fL (81-99); MONOCYTES # (AUTO) 0.8 (0.2-0.8); MONOCYTES % 8.6 % (4.4-11.3); NEUTROPHILS # (AUTO) 5.7 (2.1-6.9); NEUTROPHILS % 63.8 % (38.7-80.0); PLATELET COUNT 337 x10e3/uL (140-360); RED BLOOD COUNT 3.56 x10e6/uL (3.6-5.1); RED CELL DISTRIBUTION WIDTH 13.7 % (11.7-14.4); WHITE BLOOD COUNT 8.87 x10e3/uL (4.8-10.8)
[2023-11-08 06:48] LABS: ALBUMIN 2.7 g/dL (3.5-5.0); ANION GAP 11.9 mmol/L (8-16); BILIRUBIN,TOTAL 0.4 mg/dL (0.2-1.2); CALCIUM 8.5 mg/dL (8.4-10.2); CREATININE, SERUM 0.72 mg/dL (0.57-1.11); POTASSIUM 3.9 mmol/L (3.5-5.1); TOTAL PROTEIN 5.5 g/dL (6.5-8.1)
[2023-11-08] MEDS: PANTOPRAZOLE SOD 40 MG TABEC PO SCH (07:32)
[2023-11-08 09:05] VITALS: BP 121/49; PULSE 78; RESP 17; TEMP 97.9; O2SAT 94
[2023-11-08 09:29] VITALS: BP 131/65; PULSE 78; RESP 16; TEMP 98.6; O2SAT 95
[2023-11-08 13:53] VITALS: BP 135/72; PULSE 79; RESP 16; TEMP 98.6; O2SAT 95
[2023-11-08 16:49] VITALS: BP 138/75; PULSE 77; RESP 18; TEMP 98; O2SAT 95
[2023-11-08 16:50] VITALS: BP 124/61; PULSE 85; RESP 19; TEMP 100.7; O2SAT 100
[2023-11-08] MEDS: HYDROMORPHONE 1MG/1ML INJ IV PRN (17:13)
[2023-11-08] MEDS: PNEUMOCOCCAL VACCINE POLYVALENT 23 MCG/0.5 ML VIAL IM ONE (17:17)
[2023-11-09] VITALS (7 sets, daily range): BP systolic 129–153; BP diastolic 70–88; PULSE 52–88; RESP 17–20; TEMP 97.9–98.5; O2SAT 92–97
[2023-11-10] VITALS (7 sets, daily range): BP systolic 114–151; BP diastolic 55–91; PULSE 68–98; RESP 16–18; TEMP 98.2–98.8; O2SAT 94–98
[2023-11-11 00:24] VITALS: BP 131/71; PULSE 86; RESP 17; TEMP 98.6; O2SAT 96
[2023-11-11 04:00] VITALS: BP 134/80; PULSE 90; RESP 17; TEMP 97.9; O2SAT 97
[2023-11-11 07:30] VITALS: BP 149/89; PULSE 97; RESP 18; TEMP 98.3; O2SAT 95
[2023-11-11 09:32] VITALS: BP 149/89; PULSE 97; RESP 18; TEMP 98.3; O2SAT 95
[2023-11-11 09:34] VITALS: BP 149/89; PULSE 97; RESP 18; TEMP 98.3; O2SAT 95
[2023-11-11 12:24] VITALS: BP 139/67; PULSE 85; RESP 16; TEMP 98.6; O2SAT 92
== END 2023-11-11 14:01 | disposition home or self-care (01) | DRG 392 ==
LOC: ER 11:33 → ERHOLD 14:44 → MED/SURG2 16:39 → OBSVTOIN 11-08 14:37
PROVIDERS: ADMIT Internal Medicine; ATTEND Internal Medicine
PROC: 02HV33Z Insertion of Infusion Device into Superior Vena Cava, Percutaneous Approach (ICD-10-PCS; principal; 2023-11-07)
PROC: B548ZZA Ultrasonography of Superior Vena Cava, Guidance (ICD-10-PCS; 2023-11-07)
DX: K57.32 Diverticulitis of large intestine without perforation or abscess without bleeding (principal); N39.0 Urinary tract infection, site not specified; B95.2 Enterococcus as the cause of diseases classified elsewhere; I10 Essential (primary) hypertension; M32.9 Systemic lupus erythematosus, unspecified; K21.9 Gastro-esophageal reflux disease without esophagitis; F41.9 Anxiety disorder, unspecified; G89.29 Other chronic pain; G47.00 Insomnia, unspecified; D64.9 Anemia, unspecified; Z11.52 Encounter for screening for COVID-19; Z90.49 Acquired absence of other specified parts of digestive tract; Z88.5 Allergy status to narcotic agent; Z88.2 Allergy status to sulfonamides
CPT/HCPCS: 36415; 36569; 71045; 74177; 80053; 81001; 82550; 82948; 83690; 83735; 84484; 85025; 85610; 85730; 87086; 87186; 90732; 94760; 99284; G0378; J1170; J2405; J2543; J7030; Q9967; U0002

== ENCOUNTER → 2025-02-08 | Outpatient (REF) | payer MEDICARE ==
[~2025-02-08] MED LIST changes: +LINZESS72 MCG PO; +MACROBID 100 M100 MG PO; +OMEPRAZOLE40 MG PO; +VITAMIN D250 MCG PO
== END ==
LOC: RAD 14:58
PROVIDERS: ATTEND Internal Medicine
DX: M25.512 Pain in left shoulder (principal); M25.562 Pain in left knee; M25.561 Pain in right knee